=== PATIENT | male | born 1975 | race Caucasian/White ===

== ENCOUNTER 2019-04-10 16:01 | Inpatient (IN) | payer OTHER ==
[2019-04-10] MEDS ORDERED: IBUPROFEN 600 MG TAB PO STA (16:53)
[2019-04-10] MEDS ORDERED: ACETAMINOPHEN TAB 500 MG TAB PO STA (16:53)
[2019-04-10 17:02] LABS: Basophils # (A) 0.1 k/uL (0-0.2); Basophils % (A) 1 %; Eosinophils # (A) 0.4 k/uL (0-0.7); Eosinophils % (A) 6 %; HCT 48.5 % (39.0-53.0); HGB 16.6 gm/dL (13.0-17.5); Lymphocytes # (A) 0.3 k/uL (1.0-4.8); Lymphocytes % (A) 5 %; MCH 30.3 pg (25.0-35.0); MCHC 34.2 g/dL (31.0-37.0); MCV 88.7 fL (80.0-100.0); Mean Platelet Volume 7.9; Monocytes # (A) 0.5 k/uL (0-1.0); Monocytes % (A) 8 %; Neutrophils # (A) 4.9 k/uL (1.3-7.7); Neutrophils % (A) 78 %; Platelet Count 163 k/uL (150-450); RBC 5.46 m/uL (4.30-5.90); RDW 12.3 % (11.5-15.5); WBC 6.2 k/uL (3.8-10.6)
--- NOTE | 2019-04-10 17:06 | ED ---
Fever HPI - General Chief Complaint: Chest Pain Stated Complaint: Chest pain,SOB Time Seen by Provider: 04/10/19 16:31 Source: patient, RN notes reviewed, old records reviewed Mode of arrival: wheelchair Limitations: no limitations - History of Present Illness Initial Comments: This is a 43-year-old male DF for evaluation patient presents today for eval uation regards to recent fever body aches and pains patient also has known DVT diagnosed today. Is complaining of chest pain nor severe fever on arrival to ER no travel history or sick contacts. Patient has been driving a lot for work but no prior history of DVT on no otherwise no medical history denies drugs or alcohol does smoke MD Complaint: fever, other (body aches) -: days(s) Temperature Source: subjective Context: sick contacts, recent travel Associated Symptoms: chills Treatments Prior to Arrival: none - Related Data Home Medications Medication Instructions Recorded Confirmed Gabapentin [Neurontin] 100 mg PO BID PRN 11/25/14 11/30/14 Naproxen [Naprosyn] 250 mg PO BID PRN 11/25/14 11/25/14 Previous Rx's Medication Instructions Recorded HYDROcodone/APAP 7.5-325MG [[place] 1 each PO Q4H PRN #60 tab 11/30/14 7.5] Allergies Allergy/AdvReac Type Severity Reaction Status Date / Time Penicillins Allergy Unknown Verified 11/25/14 15:59 Review of Systems ROS Statement: Those systems with pertinent positive or pertinent negative responses have been documented in the HPI. ROS Other: All systems not noted in ROS Statement are negative. Past Medical History Past Medical History: No Reported History Additional Past Medical History / Comment(s): dvts polycythemia vera History of Any Multi-Drug Resistant Organisms: None Reported Past Surgical History: Cholecystectomy, Hernia Repair Additional Past Surgical History / Comment(s): LEFT INGUINAL HERNIA Past Anesthesia/Blood Transfusion Reactions: Motion Sickness Past Psychological History: No Psychological Hx Reported Smoking Status: Current every day smoker Past Alcohol Use History: Rare Past Drug Use History: None Reported - Past Family History Mother Family Medical History: No Reported History General Exam Limitations: no limitations General appearance: alert, in no apparent distress, anxious, in distress Head exam: Present: atraumatic, normocephalic, normal inspection Eye exam: Present: normal appearance, PERRL, EOMI. Absent: scleral icterus, conjunctival injection, periorbital swelling ENT exam: Present: normal exam, mucous membranes moist Neck exam: Present: normal inspection. Absent: tenderness, meningismus, lymphadenopathy Respiratory exam: Present: normal lung sounds bilaterally. Absent: respiratory distress, wheezes, rales, rhonchi, stridor Cardiovascular Exam: Present: normal rhythm, tachycardia, normal heart sounds. Absent: systolic murmur, diastolic murmur, rubs, gallop, clicks GI/Abdominal exam: Present: soft, normal bowel sounds. Absent: distended, tenderness, guarding, rebound, rigid Extremities exam: Present: normal inspection, full ROM, normal capillary refill. Absent: tenderness, pedal edema, joint swelling, calf tenderness Back exam: Present: normal inspection Neurological exam: Present: alert, oriented X3, CN II-XII intact Psychiatric exam: Present: normal affect, normal mood Skin exam: Present: warm, dry, intact, normal color. Absent: rash Course Vital Signs 04/10/19 04/10/19 04/10/19 16:07 16:32 17:39 Temperature 102.2 F H 101 F H Pulse Rate 132 H 125 H Pulse Rate [ 124 H [employer] ] Respiratory 18 18 Rate Blood Pressure 129/81 145/96 O2 Sat by Pulse 96 97 Oximetry 04/10/19 04/10/19 18:11 18:46 Temperature 100.9 F H 100.3 F H Pulse Rate 121 H 117 H Pulse Rate [ [employer] ] Respiratory 18 18 Rate Blood Pressure 139/93 142/96 O2 Sat by Pulse 98 97 Oximetry - Reevaluation(s) Reevaluation #1: 04/10/19 18:08 Medical records reviewed, patient does have US showing positive recent DVT diagnosed today Reevaluation #2: 04/10/19 20:01 Patient does feel better with fever control hydration, pain control - Consultations Consultation #1: Spoke with Dr. Linton who is agreeable to admit Consultation #2: Spoke with Dr. Cooepr who is okay to admit and will evaluate for further intervention Consultation #3: Spoke with ICU for placement who agree Medical Decision Making - Medical Decision Making 43 male to the ER with multiple medical conditions, patient is right lower extremity DVT positive bilateral PEs as well as influenza and, patient will be treated for symptoms and can be admitted for evaluation and management - Lab Data Result diagrams: 04/10/19 16:33 04/10/19 16:33 Lab Results 04/10/19 04/10/19 04/10/19 Range/Units 16:33 16:33 16:33 WBC (3.8-10.6) k/uL RBC (4.30-5.90) m/uL Hgb (13.0-17.5) gm/dL Hct (39.0-53.0) % MCV (80.0-100.0) fL MCH (25.0-35.0) pg MCHC (31.0-37.0) g/dL RDW (11.5-15.5) % Plt Count (150-450) k/uL Neutrophils % % Lymphocytes % % Monocytes % % Eosinophils % % Basophils % % Neutrophils # (1.3-7.7) k/uL Lymphocytes # (1.0-4.8) k/uL Monocytes # (0-1.0) k/uL Eosinophils # (0-0.7) k/uL Basophils # (0-0.2) k/uL PT 9.8 (9.0-12.0) sec INR 0.9 (<1.2) APTT 22.3 (22.0-30.0) sec Sodium (137-145) mmol/L Potassium (3.5-5.1) mmol/L Chloride (98-107) mmol/L Carbon Dioxide (22-30) mmol/L Anion Gap mmol/L BUN (9-20) mg/dL Creatinine (0.66-1.25) mg/dL Est GFR (CKD-EPI)AfAm (>60 ml/min/1.73 sqM) Est GFR (CKD-EPI)NonAf (>60 ml/min/1.73 sqM) Glucose (74-99) mg/dL Plasma Lactic Acid Eh 1.3 (0.7-2.0) mmol/L Calcium (8.4-10.2) mg/dL Phosphorus (2.5-4.5) mg/dL Magnesium (1.6-2.3) mg/dL Total Bilirubin (0.2-1.3) mg/dL AST (17-59) U/L ALT (4-49) U/L Alkaline Phosphatase (38-126) U/L Troponin I <0.012 (0.000-0.034) ng/mL Total Protein (6.3-8.2) g/dL Albumin (3.5-5.0) g/dL TSH (0.465-4.680) mIU/L Free T4 (0.78-2.19) ng/dL Influenza Type A RNA (Not Detectd) Influenza Type B (PCR) (Not Detectd) 04/10/19 04/10/19 04/10/19 Range/Units 16:33 16:33 16:33 WBC 6.2 (3.8-10.6) k/uL RBC 5.46 (4.30-5.90) m/uL Hgb 16.6 (13.0-17.5) gm/dL Hct 48.5 (39.0-53.0) % MCV 88.7 (80.0-100.0) fL MCH 30.3 (25.0-35.0) pg MCHC 34.2 (31.0-37.0) g/dL RDW 12.3 (11.5-15.5) % Plt Count 163 (150-450) k/uL Neutrophils % 78 % Lymphocytes % 5 % Monocytes % 8 % Eosinophils % 6 % Basophils % 1 % Neutrophils # 4.9 (1.3-7.7) k/uL Lymphocytes # 0.3 L (1.0-4.8) k/uL Monocytes # 0.5 (0-1.0) k/uL Eosinophils # 0.4 (0-0.7) k/uL Basophils # 0.1 (0-0.2) k/uL PT (9.0-12.0) sec INR (<1.2) APTT (22.0-30.0) sec Sodium 135 L (137-145) mmol/L Potassium 4.4 (3.5-5.1) mmol/L Chloride 105 (98-107) mmol/L Carbon Dioxide 22 (22-30) mmol/L Anion Gap 8 mmol/L BUN 18 (9-20) mg/dL Creatinine 1.00 (0.66-1.25) mg/dL Est GFR (CKD-EPI)AfAm >90 (>60 ml/min/1.73 sqM) Est GFR (CKD-EPI)NonAf >90 (>60 ml/min/1.73 sqM) Glucose 87 (74-99) mg/dL Plasma Lactic Acid Eh (0.7-2.0) mmol/L Calcium 9.5 (8.4-10.2) mg/dL Phosphorus 3.3 (2.5-4.5) mg/dL Magnesium 1.8 (1.6-2.3) mg/dL Total Bilirubin 0.7 (0.2-1.3) mg/dL AST 23 (17-59) U/L ALT 19 (4-49) U/L Alkaline Phosphatase 72 (38-126) U/L Troponin I (0.000-0.034) ng/mL Total Protein 7.4 (6.3-8.2) g/dL Albumin 4.3 (3.5-5.0) g/dL TSH 0.233 L (0.465-4.680) mIU/L Free T4 1.06 (0.78-2.19) ng/dL Influenza Type A RNA (Not Detectd) Influenza Type B (PCR) (Not Detectd) 04/10/19 Range/Units 17:17 WBC (3.8-10.6) k/uL RBC (4.30-5.90) m/uL Hgb (13.0-17.5) gm/dL Hct (39.0-53.0) % MCV (80.0-100.0) fL MCH (25.0-35.0) pg MCHC (31.0-37.0) g/dL RDW (11.5-15.5) % Plt Count (150-450) k/uL Neutrophils % % Lymphocytes % % Monocytes % % Eosinophils % % Basophils % % Neutrophils # (1.3-7.7) k/uL Lymphocytes # (1.0-4.8) k/uL Monocytes # (0-1.0) k/uL Eosinophils # (0-0.7) k/uL Basophils # (0-0.2) k/uL PT (9.0-12.0) sec INR (<1.2) APTT (22.0-30.0) sec Sodium (137-145) mmol/L Potassium (3.5-5.1) mmol/L Chloride (98-107) mmol/L Carbon Dioxide (22-30) mmol/L Anion Gap mmol/L BUN (9-20) mg/dL Creatinine (0.66-1.25) mg/dL Est GFR (CKD-EPI)AfAm (>60 ml/min/1.73 sqM) Est GFR (CKD-EPI)NonAf (>60 ml/min/1.73 sqM) Glucose (74-99) mg/dL Plasma Lactic Acid Eh (0.7-2.0) mmol/L Calcium (8.4-10.2) mg/dL Phosphorus (2.5-4.5) mg/dL Magnesium (1.6-2.3) mg/dL Total Bilirubin (0.2-1.3) mg/dL AST (17-59) U/L ALT (4-49) U/L Alkaline Phosphatase (38-126) U/L Troponin I (0.000-0.034) ng/mL Total Protein (6.3-8.2) g/dL Albumin (3.5-5.0) g/dL TSH (0.465-4.680) mIU/L Free T4 (0.78-2.19) ng/dL Influenza Type A RNA Detected H (Not Detectd) Influenza Type B (PCR) Not Detected (Not Detectd) - EKG Data -: EKG Interpreted by Me (EKG shows sinus tachycardia rate 128, HI 1:30, QRS 90, QTc 440) - Radiology Data Radiology results: report reviewed (CTA chest social positive for bilateral PE), image reviewed Critical Care Time Critical Care Time: Yes Total Critical Care Time: 31 Disposition Clinical Impression: Chest pain, Influenza A, Fever, Bilateral pulmonary embolism, Right leg DVT Disposition: ADMITTED IP TO THIS HOSP Condition: Serious Is patient prescribed a controlled substance at d/c from ED?: No Referrals: Mary Burdick DO [Primary Care Provider] - 1-2 days
[2019-04-10] MEDS ORDERED: SODIUM CHLORIDE 0.9% 2,000 ML IV STA (17:07)
[2019-04-10] MEDS ORDERED: SODIUM CHLORIDE 0.9% 1,000 ML IV STA ×3 (17:07→20:04)
[2019-04-10 17:16] LABS: ALT 19 U/L (4-49); AST 23 U/L (17-59); African American GFR (CKD) >90 (>60 ml/min/1.73 sqM); Albumin 4.3 g/dL (3.5-5.0); Alkaline Phosphatase 72 U/L (38-126); Anion Gap 8 mmol/L; Blood Urea Nitrogen 18 mg/dL (9-20); Calcium 9.5 mg/dL (8.4-10.2); Carbon Dioxide 22 mmol/L (22-30); Chloride 105 mmol/L (98-107); Glucose 87 mg/dL (74-99); Non-African American GFR(CKD) >90 (>60 ml/min/1.73 sqM); Potassium 4.4 mmol/L (3.5-5.1); Sodium 135 mmol/L (137-145); Total Bilirubin 0.7 mg/dL (0.2-1.3); Total Protein 7.4 g/dL (6.3-8.2)
[2019-04-10 17:24] LABS: Magnesium 1.8 mg/dL (1.6-2.3); Phosphorus 3.3 mg/dL (2.5-4.5)
[2019-04-10 17:47] LABS: INR 0.9 (<1.2); Partial Thromboplastin Time 22.3 sec (22.0-30.0); Prothrombin Time 9.8 sec (9.0-12.0)
[2019-04-10] MEDS ORDERED: OSELTAMIVIR 75 MG CAP PO STA (18:17)
[2019-04-10 19:31] LABS: T4, Free (Free Thyroxine) 1.06 ng/dL (0.78-2.19)
[2019-04-10] MEDS ORDERED: HEPARIN SODIUM,PORCINE 5,000 UNIT/ML 1 ML VIAL IV PRN (19:31)
[2019-04-10] MEDS ORDERED: HEPARIN SODIUM,PORCINE 10,000 UNIT/ML 1 ML VIAL IV ONE (19:31)
--- NOTE | 2019-04-10 19:37 | CT ---
EXAMINATION TYPE: CT angio chest with contrast and with 3-D reconstruction renderings DATE OF EXAM: 04/10/2019 6:41 PM COMPARISON: None HISTORY: SOB, cough TECHNIQUE: Departmental CTA protocol. Automated exposure control for dose reduction was used with 100 mL of Isovue 370 intravenous contrast. 3-D reconstruction renderings. FINDINGS: LUNGS: The lungs are grossly clear, there is no concerning parenchymal mass or nodule identified. T here is no pleural effusion or pneumothorax seen. The tracheobronchial tree is patent. MEDIASTINUM: There is satisfactory enhancement of the pulmonary artery and its branches, and there ar e multifocal filling defects bilaterally consistent with bilateral pulmonary emboli. These are nonocc lusive centrally, but several are occlusive at the segmental level bilaterally. The right lower lobe pulmonary artery is nearly occlusive. The right ventricle and right atrium are not enlarged, and ther e is no evidence of right heart strain. No cardiomegaly or pericardial effusion. There is evidence of left ventricular hypertrophy. No eviden ce of intracranial filling defects. No mediastinal or hilar adenopathy. OTHER: No additional significant abnormality is seen. IMPRESSION: PROMINENT MULTIFOCAL BILATERAL PULMONARY EMBOLI, WITH NO EVIDENCE OF RIGHT HEART STRAIN. Results discussed with ordering physician just now, to ensure communications.
[2019-04-10] MEDS ORDERED: NITROGLYCERIN SL TABS 0.4 MG TAB SUBLINGUAL PRN (19:53)
[2019-04-10] MEDS ORDERED: NALOXONE 0.4 MG/ML 1 ML VIAL IV PRN (19:53)
[2019-04-10] MEDS: HEPARIN SOD,PORK IN 0.45% NACL 25,000 UNIT in 0.45% NACL 1 250ML.BAG IV SCH (20:18)
[2019-04-10] MEDS: SODIUM CHLORIDE 0.9% 1,000 ML IV SCH (22:25)
[2019-04-10 22:34] LABS: Glucose,Whole Blood 136 mg/dL (75-99)
[2019-04-10] MEDS: MORPHINE SULFATE 4 MG/ML SYRINGE IV PRN (23:20)
[2019-04-11 02:15] LABS: Appearance,Urine Clear (Clear); Bilirubin,Urine Negative (Negative); Blood,Urine Negative (Negative); Color,Urine Light Yellow; Glucose,Urine (UA) Negative (Negative); Ketones,Urine Negative (Negative); Leukocyte Esterase,Urine Negative (Negative); Nitrite,Urine Negative (Negative); PH, Urine 5.5 (5.0-8.0); Protein,Urine Negative (Negative); Urobilinogen,Urine <2.0 mg/dL (<2.0)
[2019-04-11] MEDS: ACETAMINOPHEN TAB 325 MG TAB PO PRN ×2 (04:50→15:25)
[2019-04-11 05:09] LABS: Basophils % (A) 1 %; Eosinophils # (A) 0.1 k/uL (0-0.7); Eosinophils % (A) 3 %; HCT 42.6 % (39.0-53.0); HGB 14.6 gm/dL (13.0-17.5); Lymphocytes # (A) 0.5 k/uL (1.0-4.8); Lymphocytes % (A) 10 %; MCH 30.7 pg (25.0-35.0); MCHC 34.3 g/dL (31.0-37.0); MCV 89.6 fL (80.0-100.0); Monocytes # (A) 0.5 k/uL (0-1.0); Monocytes % (A) 8 %; Neutrophils # (A) 4.1 k/uL (1.3-7.7); Neutrophils % (A) 77 %; Platelet Count 159 k/uL (150-450); RBC 4.76 m/uL (4.30-5.90); RDW 12.3 % (11.5-15.5); WBC 5.3 k/uL (3.8-10.6)
[2019-04-11 05:17] LABS: Prothrombin Time 10.4 sec (9.0-12.0)
[2019-04-11 06:34] LABS: African American GFR (CKD) >90 (>60 ml/min/1.73 sqM); Anion Gap 7 mmol/L; Blood Urea Nitrogen 14 mg/dL (9-20); Calcium 8.3 mg/dL (8.4-10.2); Carbon Dioxide 21 mmol/L (22-30); Chloride 109 mmol/L (98-107); Cholesterol 163 mg/dL (<200); Glucose 116 mg/dL (74-99); HDL Cholesterol 31 mg/dL (40-60); LDL Cholesterol,Calculated 111 mg/dL (0-99); Non-African American GFR(CKD) >90 (>60 ml/min/1.73 sqM); Potassium 3.9 mmol/L (3.5-5.1); Sodium 137 mmol/L (137-145); Triglycerides 104 mg/dL (<150)
[2019-04-11] MEDS: SODIUM CHLORIDE 0.9% 1,000 ML IV SCH ×2 (06:43→15:26)
[2019-04-11] MEDS ORDERED: GABAPENTIN 300 MG CAP PO PRN (07:03)
[2019-04-11] MEDS ORDERED: SILDENAFIL 20 MG TAB PO SCH (07:05)
[2019-04-11] MEDS: ASPIRIN 81 MG PO SCH (07:54)
[2019-04-11] MEDS: OSELTAMIVIR 75 MG CAP PO SCH ×2 (07:54→21:30)
[2019-04-11] MEDS: SILDENAFIL 20 MG TAB PO SCH (07:54)
[2019-04-11] MEDS: amLODIPine 5 MG TAB PO SCH (07:54)
--- NOTE | 2019-04-11 08:31 | XR ---
EXAMINATION TYPE: XR chest 1V portable DATE OF EXAM: 04/11/2019 COMPARISON: Prior chest x-ray 09/06/2011, chest CT 04/10/2019 HISTORY: Fluid A, pleural effusions, pulmonary emboli TECHNIQUE: Single frontal view of the chest is obtained. FINDINGS: There is obscured lateral aspect of the left hemidiaphragm. There is no evident pneumothor ax. Heart size is within normal limits. Pulmonary vascularity and geraldine are unremarkable. IMPRESSION: There may be left lower lobe atelectasis, difficult to exclude small effusion.
--- NOTE | 2019-04-11 08:48 | P.CRDCN ---
History of Present Illness Consult date: 04/11/19 Chief complaint: Right lower extremity discomfort History of present illness: This is a very pleasant 43-year-old gentleman with a past medical history significant for hypertension who presented to the emergency room complaining of chest discomfort as well as shortness of breath. The patient is a otr owner operator truck driver who was diagnosed recently with a DVT of the right lower extremity. For the last 3 days, he has been experiencing chest pain in the middle of the chest as a sharp kind of discomfort without radiation. Beside that he was experiencing increasing in the shortness of breath. Also when he arrived to the emergency room the patient was having severe fever. As a matter of fact when the patient was seen earlier today he was experiencing fever associated with sweating. A computed tomography scan was performed in the emergency room and revealed multi- pulmonary embolism. Currently the patient is on heparin IV. He stated that he is feeling slightly better indeterminable of chest pain and shortness of breath. Currently he is also on isolation regarding flu symptoms. Overall he is hemodynamically stable. In terms off the computed tomography scan revealed multiple PE. The EKG showed sinus tachycardia. The cardiac enzymes were checked and came in to be unremarkable. An echocardiogram is in process to be done. Past Medical History Past Medical History: No Reported History, Deep Vein Thrombosis (DVT), Hypertension Additional Past Medical History / Comment(s): hernia repair, 1998 , tonsillectomy, dvts polycythemia vera History of Any Multi-Drug Resistant Organisms: None Reported Past Surgical History: Cholecystectomy, Hernia Repair Additional Past Surgical History / Comment(s): LEFT INGUINAL HERNIA Past Anesthesia/Blood Transfusion Reactions: Motion Sickness Past Psychological History: No Psychological Hx Reported Smoking Status: Current every day smoker Past Alcohol Use History: Rare Past Drug Use History: None Reported - Past Family History Mother Family Medical History: No Reported History Medications and Allergies Home Medications Medication Instructions Recorded Confirmed Type Aspirin EC [Ecotrin Low Dose] 81 mg PO DAILY 04/10/19 04/10/19 History Gabapentin 150 - 300 mg PO HS PRN 04/10/19 04/10/19 History amLODIPine [Norvasc] 5 mg PO DAILY 04/10/19 04/10/19 History Allergies Allergy/AdvReac Type Severity Reaction Status Date / Time Penicillins Allergy FAMILY Verified 04/10/19 20:16 HISTORY Physical Exam Vitals: Vital Signs Temp Pulse Pulse Resp BP Pulse Ox 04/11/19 08:00 100.1 F H 100 27 H 144/82 94 L 04/11/19 07:00 100.4 F H 104 H 10 L 157/96 95 04/11/19 06:00 107 H 31 H 167/99 94 L 04/11/19 05:00 116 H 32 H 167/99 94 L 04/11/19 04:00 114 H 37 H 160/100 93 L 04/11/19 03:00 126 H 31 H 141/97 96 04/11/19 02:55 126 H 34 H 141/97 96 04/11/19 02:50 126 H 34 H 141/97 96 04/11/19 02:45 120 H 33 H 141/97 96 04/11/19 02:40 121 H 32 H 162/113 96 04/11/19 02:35 123 H 34 H 162/113 96 04/11/19 02:30 149 H 42 H 162/113 95 04/11/19 02:25 116 H 31 H 162/113 93 L 04/11/19 02:20 120 H 31 H 162/113 93 L 04/11/19 02:15 114 H 32 H 162/113 93 L 04/11/19 02:00 113 H 21 141/98 94 L 04/11/19 01:00 112 H 7 L 143/99 94 L 04/11/19 00:00 99.8 F H 112 H 113 H 7 L 143/99 93 L 04/10/19 23:33 108 H 11 L 147/90 94 L 04/10/19 23:00 100.6 F H 120 H 28 H 147/90 96 04/10/19 22:45 113 H 04/10/19 22:32 95 04/10/19 22:21 115 H 19 147/107 98 04/10/19 22:09 100.6 F H 109 H 20 04/10/19 20:48 99 F 108 H 18 144/100 98 04/10/19 19:00 109 H 19 146/99 98 04/10/19 18:46 100.3 F H 117 H 18 142/96 97 04/10/19 18:11 100.9 F H 121 H 18 139/93 98 04/10/19 17:39 101 F H 125 H 18 145/96 97 04/10/19 16:32 124 H 04/10/19 16:07 102.2 F H 132 H 18 129/81 96 Intake and Output 04/10/19 04/11/19 04/11/19 22:59 06:59 14:59 Intake Total 824.648 200 Output Total 600 500 Balance 224.648 -300 Intake: IV 710 200 Sodium Chloride 0.9% 1, 710 200 000 ml @ 100 mls/hr IV . Q10H [facility] Rx#:[id number] Intake, IV Titration 114.648 Amount Heparin Sod,Pork in 0.45% 114.648 NaCl 25,000 unit In 0.45 % NaCl 1 250ml.bag @ 18 UNITS/KG/HR 16.737 mls/hr IV .[id number] [facility] Rx#: [id number] Output: Urine 600 500 Other: Voiding Method Urinal Urinal Weight 92.986 kg 94.8 kg - Constitutional General appearance: no acute distress - Respiratory Respiratory: bilateral: CTA - Cardiovascular Rhythm: regular Heart sounds: normal: S1, S2 Results 04/11/19 04:38 04/11/19 04:38 Cardiac Enzymes 04/10/19 04/10/19 04/10/19 Range/Units 16:33 16:33 22:50 AST 23 (17-59) U/L Troponin I <0.012 <0.012 (0.000-0.034) ng/mL 04/11/19 Range/Units 04:38 AST (17-59) U/L Troponin I <0.012 (0.000-0.034) ng/mL Coagulation 04/10/19 04/11/19 04/11/19 Range/Units 16:33 01:56 04:38 PT 9.8 10.4 (9.0-12.0) sec APTT 22.3 70.8 H (22.0-30.0) sec Lipids 04/11/19 Range/Units 04:38 Triglycerides 104 (<150) mg/dL Cholesterol 163 (<200) mg/dL HDL Cholesterol 31 L (40-60) mg/dL CBC 04/10/19 04/11/19 Range/Units 16:33 04:38 WBC 6.2 5.3 (3.8-10.6) k/uL RBC 5.46 4.76 (4.30-5.90) m/uL Hgb 16.6 14.6 (13.0-17.5) gm/dL Hct 48.5 42.6 (39.0-53.0) % Plt Count 163 159 (150-450) k/uL Comprehensive Metabolic Panel 04/10/19 04/11/19 Range/Units 16:33 04:38 Sodium 135 L 137 (137-145) mmol/L Potassium 4.4 3.9 (3.5-5.1) mmol/L Chloride 105 109 H (98-107) mmol/L Carbon Dioxide 22 21 L (22-30) mmol/L BUN 18 14 (9-20) mg/dL Creatinine 1.00 0.96 (0.66-1.25) mg/dL Glucose 87 116 H (74-99) mg/dL Calcium 9.5 8.3 L (8.4-10.2) mg/dL AST 23 (17-59) U/L ALT 19 (4-49) U/L Alkaline Phosphatase 72 (38-126) U/L Total Protein 7.4 (6.3-8.2) g/dL Albumin 4.3 (3.5-5.0) g/dL Current Medications Generic Name Dose Route Start Last Admin Trade Name Freq PRN Reason Stop Dose Admin Acetaminophen 650 mg 04/10/19 22:58 04/11/19 04:50 Tylenol Tab PO 650 mg Q4HR PRN Administration Fever and/or Mild Pain Amlodipine Besylate 5 mg 04/11/19 09:00 04/11/19 07:54 Norvasc PO 5 mg DAILY [facility]ELA Administration Aspirin 81 mg 04/11/19 09:00 04/11/19 07:54 Aspirin PO 81 mg DAILY T[facility]ELA Administration Gabapentin 300 mg 04/11/19 07:03 Neurontin PO HS PRN HEADACHES Heparin Sodium (Porcine) 0 unit 04/10/19 19:31 Heparin IV PER PROTOCOL PRN Low PTT Protocol Heparin Sodium/Sodium Chloride 250 mls @ 16.737 mls/hr 04/10/19 19:45 04/11/19 03:09 25,000 unit/ Sodium Chloride IV 16 units/kg/hr .[id number] [facility] 14.878 mls/hr Titration Protocol 18 UNITS/KG/HR Sodium Chloride 1,000 mls @ 100 mls/hr 04/10/19 20:00 04/11/19 06:43 Saline 0.9% IV 100 mls/hr .Q10H [facility] Administration Morphine Sulfate 4 mg 04/10/19 19:53 04/10/19 23:20 Morphine Sulfate (Inj) IV 4 mg Q4HR PRN Administration Chest Pain Naloxone HCl 0.2 mg 04/10/19 19:53 Narcan IV Q2M PRN Opioid Reversal Nitroglycerin 0.4 mg 04/10/19 19:53 Nitrostat SUBLINGUAL Q5M PRN Chest Pain Oseltamivir Phosphate 75 mg 04/11/19 09:00 04/11/19 07:54 Tamiflu PO 04/15/19 09:01 75 mg Q12HR TAMELA Administration Sildenafil Citrate 20 mg 04/11/19 08:00 04/11/19 07:54 Revatio PO 20 mg Q8H TAMELA Administration Intake and Output 04/10/19 04/11/19 04/11/19 22:59 06:59 14:59 Intake Total 824.648 200 Output Total 600 500 Balance 224.648 -300 Intake: IV 710 200 Sodium Chloride 0.9% 1, 710 200 000 ml @ 100 mls/hr IV . Q10H [facility] Rx#:[id number] Intake, IV Titration 114.648 Amount Heparin Sod,Pork in 0.45% 114.648 NaCl 25,000 unit In 0.45 % NaCl 1 250ml.bag @ 18 UNITS/KG/HR 16.737 mls/hr IV .[id number] [facility] Rx#: [id number] Output: Urine 600 500 Other: Voiding Method Urinal Urinal Weight 92.986 kg 94.8 kg 04/11/19 04:38 04/11/19 04:38 Assessment and Plan Assessment: Assessment #1 Provoked DVT/PE #2 chest discomfort secondary to PE #3 flu symptoms #4 hypertension Plan #1 continue IV heparin for now. #2 switch the patient to oral anticoagulation #3 acute coronary syndrome was ruled out #4 the sinus tachycardia is likely related to the PE. We'll continue monitor the heart rate #5 obtain an echocardiogram was Doppler #6 follow-up with the patient
--- NOTE | 2019-04-11 09:33 | P.GSCN ---
History of Present Illness Consult date: 04/11/19 Reason for Consult: Bilateral pulmonary embolism, right lower extremity DVT History of present illness: The patient is a pleasant 43-year-old male with a past medical history significant for hypertension who was sent to the ED by his PCP at [facility] for a right lower extremity DVT, tachycardia, and fever. Patient states he had venous doppler ultrasound of the lower extremity done at [facility]. The patient states approximately 3 weeks ago he noticed swelling, pain, and redness in his right lower extremity, however did not seek any medical attention until yesterday. Patient also states yesterday he started feeling chest pain with breathing, shortness of breath, heart racing, fever, and body aches. He denies any past history of DVTs or pulmonary embolism, however after further interview patient states he "may have had a lower extremity blood clot that he was treatred with coumadin." Denies any family history or personal history of any clotting disorders. The patient states that he drives a lot for work. The patient tested positive for influenza and is in droplet precautions. EKG showed sinus tachycardia. CT chest angiogram shows prominent multifocal bilateral pulmonary embolisms with no evidence of right heart strain. An echocardiogram has been ordered. Review of Systems A 14 point review of systems is completed, and all pertinent positives and negatives as stated in the HPI. Past Medical History Past Medical History: No Reported History, Deep Vein Thrombosis (DVT), Hypertension Additional Past Medical History / Comment(s): hernia repair, 1998 , tonsillectomy, dvts polycythemia vera History of Any Multi-Drug Resistant Organisms: None Reported Past Surgical History: Cholecystectomy, Hernia Repair Additional Past Surgical History / Comment(s): LEFT INGUINAL HERNIA Past Anesthesia/Blood Transfusion Reactions: Motion Sickness Past Psychological History: No Psychological Hx Reported Smoking Status: Current every day smoker Past Alcohol Use History: Rare Past Drug Use History: None Reported - Past Family History Mother Family Medical History: No Reported History Medications and Allergies Home Medications Medication Instructions Recorded Confirmed Type Aspirin EC [Ecotrin Low Dose] 81 mg PO DAILY 04/10/19 04/10/19 History Gabapentin 150 - 300 mg PO HS PRN 04/10/19 04/10/19 History amLODIPine [Norvasc] 5 mg PO DAILY 04/10/19 04/10/19 History Allergies Allergy/AdvReac Type Severity Reaction Status Date / Time Penicillins Allergy FAMILY Verified 04/10/19 20:16 HISTORY Surgical - Exam Vital Signs Temp Pulse Resp BP Pulse Ox 102.2 F H 132 H 18 129/81 96 04/10/19 16:07 04/10/19 16:07 04/10/19 16:07 04/10/19 16:07 04/10/19 16:07 General appearance: The patient is alert, oriented, in no acute distress. HET: Head is normocephalic and atraumatic. Pupils are equal and reactive. Neck: Supple without lymphadenopathy. Trachea midline. Heart: S1 S2. Regular rate and rhythm. Lungs: No crackles or wheezes are heard. Abdomen: Soft, nontender, nondistended with bowel sounds. No peritoneal signs. No palpable organomegaly or masses. Extremities: Normal skin color and turgor. Mild on-pitting edeam to right lower extremity, no redness noted. Radial and pedal pulses are 2/4 bilaterally. Neurological: No focal deficits. Strength and sensation are grossly intact. Results CT angiogram showing prominent multifocal bilateral pulmonary embolism with no evidence of right heart strain. Echocardiogram pending results. Chest x-ray states there may be left lower lobe atelectasis, difficult to exclude small effusion. Reported right lower extremity DVT done in PCP office know results to review. - Labs 04/11/19 04:38 04/11/19 04:38 Abnormal Lab Results - Last 24 Hours (Table) 04/10/19 04/10/19 04/10/19 Range/Units 16:33 16:33 16:33 Lymphocytes # 0.3 L (1.0-4.8) k/uL APTT (22.0-30.0) sec Sodium 135 L (137-145) mmol/L Chloride (98-107) mmol/L Carbon Dioxide (22-30) mmol/L Glucose (74-99) mg/dL POC Glucose (mg/dL) (75-99) mg/dL Calcium (8.4-10.2) mg/dL LDL Cholesterol, Calc (0-99) mg/dL HDL Cholesterol (40-60) mg/dL TSH 0.233 L (0.465-4.680) mIU/L Influenza Type A RNA (Not Detectd) 04/10/19 04/10/19 04/11/19 Range/Units 17:17 22:33 01:56 Lymphocytes # (1.0-4.8) k/uL APTT 70.8 H (22.0-30.0) sec Sodium (137-145) mmol/L Chloride (98-107) mmol/L Carbon Dioxide (22-30) mmol/L Glucose (74-99) mg/dL POC Glucose (mg/dL) 136 H (75-99) mg/dL Calcium (8.4-10.2) mg/dL LDL Cholesterol, Calc (0-99) mg/dL HDL Cholesterol (40-60) mg/dL TSH (0.465-4.680) mIU/L Influenza Type A RNA Detected H (Not Detectd) 04/11/19 04/11/19 Range/Units 04:38 04:38 Lymphocytes # 0.5 L (1.0-4.8) k/uL APTT (22.0-30.0) sec Sodium (137-145) mmol/L Chloride 109 H (98-107) mmol/L Carbon Dioxide 21 L (22-30) mmol/L Glucose 116 H (74-99) mg/dL POC Glucose (mg/dL) (75-99) mg/dL Calcium 8.3 L (8.4-10.2) mg/dL LDL Cholesterol, Calc 111 H (0-99) mg/dL HDL Cholesterol 31 L (40-60) mg/dL TSH (0.465-4.680) mIU/L Influenza Type A RNA (Not Detectd) Diabetes panel 04/10/19 04/11/19 Range/Units 16:33 04:38 Sodium 135 L 137 (137-145) mmol/L Potassium 4.4 3.9 (3.5-5.1) mmol/L Chloride 105 109 H (98-107) mmol/L Carbon Dioxide 22 21 L (22-30) mmol/L BUN 18 14 (9-20) mg/dL Creatinine 1.00 0.96 (0.66-1.25) mg/dL Glucose 87 116 H (74-99) mg/dL Calcium 9.5 8.3 L (8.4-10.2) mg/dL AST 23 (17-59) U/L ALT 19 (4-49) U/L Alkaline Phosphatase 72 (38-126) U/L Total Protein 7.4 (6.3-8.2) g/dL Albumin 4.3 (3.5-5.0) g/dL Triglycerides 104 (<150) mg/dL HDL Cholesterol 31 L (40-60) mg/dL Thyroid panel 04/10/19 Range/Units 16:33 TSH 0.233 L (0.465-4.680) mIU/L Calcium panel 04/10/19 04/10/19 04/11/19 Range/Units 16:33 16:33 04:38 Calcium 9.5 8.3 L (8.4-10.2) mg/dL Phosphorus 3.3 (2.5-4.5) mg/dL Albumin 4.3 (3.5-5.0) g/dL Pituitary panel 04/10/19 04/10/19 04/11/19 Range/Units 16:33 16:33 04:38 Sodium 135 L 137 (137-145) mmol/L Potassium 4.4 3.9 (3.5-5.1) mmol/L Chloride 105 109 H (98-107) mmol/L Carbon Dioxide 22 21 L (22-30) mmol/L BUN 18 14 (9-20) mg/dL Creatinine 1.00 0.96 (0.66-1.25) mg/dL Glucose 87 116 H (74-99) mg/dL Calcium 9.5 8.3 L (8.4-10.2) mg/dL TSH 0.233 L (0.465-4.680) mIU/L Adrenal panel 04/10/19 04/11/19 Range/Units 16:33 04:38 Sodium 135 L 137 (137-145) mmol/L Potassium 4.4 3.9 (3.5-5.1) mmol/L Chloride 105 109 H (98-107) mmol/L Carbon Dioxide 22 21 L (22-30) mmol/L BUN 18 14 (9-20) mg/dL Creatinine 1.00 0.96 (0.66-1.25) mg/dL Glucose 87 116 H (74-99) mg/dL Calcium 9.5 8.3 L (8.4-10.2) mg/dL Total Bilirubin 0.7 (0.2-1.3) mg/dL AST 23 (17-59) U/L ALT 19 (4-49) U/L Alkaline Phosphatase 72 (38-126) U/L Total Protein 7.4 (6.3-8.2) g/dL Albumin 4.3 (3.5-5.0) g/dL Assessment and Plan Assessment: #1 bilateral pulmonary embolisms #2 reported right lower extremity DVT #3 influenza A #4 tobacco abuse #5 Hypertension Plan: I discussed this patient with Dr. Cooper. Continue heparin drip. Await echo results, if any concern for right heart strain will consider transfer to higher level of care. Smoking cessation. Further recommendations to follow. Thank you for this consultation, and allowing us to take part of plan of care this patient during his hospital stay. The above dictated assessment and findings were discussed with Dr. Cooper/Dr. Ochoa. The impression and plan of care have been directed as dictated.
[2019-04-11] MEDS: MORPHINE SULFATE 4 MG/ML SYRINGE IV PRN ×2 (09:49→15:25)
[2019-04-11] MEDS: HEPARIN SOD,PORK IN 0.45% NACL 25,000 UNIT in 0.45% NACL 1 250ML.BAG IV SCH (09:49)
--- NOTE | 2019-04-11 10:40 | P.CNPUL ---
History of Present Illness Consult date: 04/11/19 Reason for consult: pulmonary embolism, other (DVT) History of present illness: This is a 43-year-old male patient who came in yesterday to the emergency department complaining of chest pain, shortness of breath, pleurisy, cough and congestion and fever with a T-max of 103.1. He had also noted some increased swelling in the right lower extremity. He was driving long distances to [place] and [place]. He has had previous history of DVT of the right lower extremity. Around 2 weeks ago he noted another swelling in the right lower extremity and ultimately he went to his primary care physician's office and he was diagnosed having a DVT of the right lower extremity and following that the patient was admitted to the hospital with a DVT special that he was also diagnosed having pulmonary embolism on a CT angiogram and he also checked po sitive for influenza A. I reviewed the records. The patient came into the emergency department quite tachycardic with a heart rate in the 120 to 1:30, sinus. The patient did have increased swelling the right lower extremity. He was given a CT angiogram that showed bilateral pulmonary embolism and there was evidence of any right ventricular strain pattern. Troponins were negative. The patient remains hemodynamically stable. His tachycardia improved and his current heart rate is around 110. He is not using excessive muscle breathing. His breathing is quite comfortable and the patient was placed on IV heparin overnight. Echo was done this morning and there is also suspected pending for now. He was started on sildenafil by his primary care physician. The patient has no family history of DVT or pulmonary embolism. No family history of sudden . This is his second event with a right lower extremity DVT both being unprovoked. No recent surgery. No malignancy. He is a smoker. Review of Systems Constitutional: Reports fatigue, Reports fever, Reports weakness Eyes: denies as per HPI, denies blurred vision, denies bulging eye, denies decreased vision, denies diplopia, denies discharge, denies dry eye, denies irritation, denies itching, denies pain, denies photophobia, denies loss of peripheral vision, denies loss of vision, denies tunnel vision/blind spots Ears: deny: decreased hearing, ear discharge, earache, tinnitus Ears, nose, mouth and throat: Denies headache, Denies sore throat Breasts: absent: as per HPI, gynecomastia Cardiovascular: Reports decreased exercise tolerance, Reports shortness of breath Respiratory: Reports dyspnea, Reports pain on inspiration Gastrointestinal: Reports as per HPI Genitourinary: Reports as per HPI Musculoskeletal: Reports as per HPI Musculoskeletal: absent: ankle pain, ankle stiffness, ankle swelling Integumentary: Denies pruritus, Denies rash Neurological: Reports as per HPI Psychiatric: Reports as per HPI Endocrine: Reports as per HPI, Reports fatigue Hematologic/Lymphatic: Reports as per HPI Allergic/Immunologic: Reports as per HPI Past Medical History Past Medical History: No Reported History, Deep Vein Thrombosis (DVT), Hypertension Additional Past Medical History / Comment(s): hernia repair, 1998 , tons illectomy, dvts polycythemia vera History of Any Multi-Drug Resistant Organisms: None Reported Past Surgical History: Cholecystectomy, Hernia Repair Additional Past Surgical History / Comment(s): LEFT INGUINAL HERNIA Past Anesthesia/Blood Transfusion Reactions: Motion Sickness Past Psychological History: No Psychological Hx Reported Smoking Status: Current every day smoker Past Alcohol Use History: Rare Past Drug Use History: None Reported - Past Family History Mother Family Medical History: No Reported History Medications and Allergies Home Medications Medication Instructions Recorded Confirmed Type Aspirin EC [Ecotrin Low Dose] 81 mg PO DAILY 04/10/19 04/10/19 History Gabapentin 150 - 300 mg PO HS PRN 04/10/19 04/10/19 History amLODIPine [Norvasc] 5 mg PO DAILY 04/10/19 04/10/19 History Allergies Allergy/AdvReac Type Severity Reaction Status Date / Time Penicillins Allergy FAMILY Verified 04/10/19 20:16 HISTORY Physical Exam Vitals: Vital Signs Temp Pulse Pulse Resp BP Pulse Ox 04/11/19 09:00 113 H 17 132/92 95 04/11/19 08:00 100.1 F H 100 27 H 144/82 94 L 04/11/19 07:00 100.4 F H 104 H 10 L 157/96 95 04/11/19 06:00 107 H 31 H 167/99 94 L 04/11/19 05:00 116 H 32 H 167/99 94 L 04/11/19 04:00 114 H 37 H 160/100 93 L 04/11/19 03:00 126 H 31 H 141/97 96 04/11/19 02:55 126 H 34 H 141/97 96 04/11/19 02:50 126 H 34 H 141/97 96 04/11/19 02:45 120 H 33 H 141/97 96 04/11/19 02:40 121 H 32 H 162/113 96 04/11/19 02:35 123 H 34 H 162/113 96 04/11/19 02:30 149 H 42 H 162/113 95 04/11/19 02:25 116 H 31 H 162/113 93 L 04/11/19 02:20 120 H 31 H 162/113 93 L 04/11/19 02:15 114 H 32 H 162/113 93 L 04/11/19 02:00 113 H 21 141/98 94 L 04/11/19 01:00 112 H 7 L 143/99 94 L 04/11/19 00:00 99.8 F H 112 H 113 H 7 L 143/99 93 L 04/10/19 23:33 108 H 11 L 147/90 94 L 04/10/19 23:00 100.6 F H 120 H 28 H 147/90 96 04/10/19 22:45 113 H 04/10/19 22:32 95 04/10/19 22:21 115 H 19 147/107 98 04/10/19 22:09 100.6 F H 109 H 20 04/10/19 20:48 99 F 108 H 18 144/100 98 04/10/19 19:00 109 H 19 146/99 98 04/10/19 18:46 100.3 F H 117 H 18 142/96 97 04/10/19 18:11 100.9 F H 121 H 18 139/93 98 04/10/19 17:39 101 F H 125 H 18 145/96 97 04/10/19 16:32 124 H 04/10/19 16:07 102.2 F H 132 H 18 129/81 96 Intake and Output 04/10/19 04/11/19 04/11/19 22:59 06:59 14:59 Intake Total 824.648 399.187 Output Total 600 500 Balance 224.648 -100.813 Intake: IV 710 300 Sodium Chloride 0.9% 1, 710 300 000 ml @ 100 mls/hr IV . Q10H [facility] Rx#:[id number] Intake, IV Titration 114.648 99.187 Amount Heparin Sod,Pork in 0.45% 114.648 99.187 NaCl 25,000 unit In 0.45 % NaCl 1 250ml.bag @ 18 UNITS/KG/HR 16.737 mls/hr IV .[id number] [facility] Rx#: [id number] Output: Urine 600 500 Other: Voiding Method Urinal Urinal Urinal Weight 92.986 kg 94.8 kg Gen. appearance, comfortable no acute distress currently on 2 L about 2 by nasal cannula Head exam was generally normal. There was no scleral icterus or corneal arcus. Mucous membranes were moist. Neck was supple and without jugular venous distension, thyromegaly, or carotid bruits. Carotids were easily palpable bilaterally. There was no adenopathy. Lungs sounds are diminished otherwise clear. Breath sounds are equal and symmetrical. No wheezes or rhonchi. Heart sounds are tachycardic, positive S1-S2 and there is no significant murmurs appreciated. Abdominal exam revealed normal bowel sounds. The abdomen was soft, non-tender, and without masses, organomegaly, or appreciable enlargement of the abdominal aorta. Extremities revealed increased swelling in the right lower extremity compared to the left. There is a difference between the caliber and the dimensions of the right leg. Pulses are equal and symmetrical in both extremities. Examination of the skin revealed no evidence of significant rashes, suspicious appearing nevi or other concerning lesions. Neurologically awake and alert and there is no focal neurological deficits. Results - Laboratory Findings CBC and BMP: 04/11/19 04:38 04/11/19 04:38 PT/INR, D-dimer PT 10.4 sec (9.0-12.0) 04/11/19 04:38 INR 1.0 (<1.2) 04/11/19 04:38 Abnormal lab findings: Abnormal Labs 04/10/19 04/10/19 04/10/19 16:33 16:33 16:33 Lymphocytes # 0.3 L APTT Sodium 135 L Chloride Carbon Dioxide Glucose POC Glucose (mg/dL) Calcium LDL Cholesterol, Calc HDL Cholesterol TSH 0.233 L Influenza Type A RNA 04/10/19 04/10/19 04/11/19 17:17 22:33 01:56 Lymphocytes # APTT 70.8 H Sodium Chloride Carbon Dioxide Glucose POC Glucose (mg/dL) 136 H Calcium LDL Cholesterol, Calc HDL Cholesterol TSH Influenza Type A RNA Detected H 04/11/19 04/11/19 04/11/19 04:38 04:38 08:43 Lymphocytes # 0.5 L APTT 58.3 H Sodium Chloride 109 H Carbon Dioxide 21 L Glucose 116 H POC Glucose (mg/dL) Calcium 8.3 L LDL Cholesterol, Calc 111 H HDL Cholesterol 31 L TSH Influenza Type A RNA - Diagnostic Findings Chest x-ray: image reviewed Assessment and Plan Plan: 1 acute bilateral pulmonary embolism secondary to a right lower extremity DVT. This is a recurrent event. The patient had a DVT approximately 2 years ago treated with Coumadin and has been off anticoagulation since. The patient currently is on IV heparin. Echocardiogram is pending regarding the possibility of right ventricular strain or pulmonary hypertension. Meanwhile, troponins are negative and the patient has no strain pattern on his CT angiogram. 2 acute influenza syndrome currently on Tamiflu 3 acute fever secondary to above 4 acute tachycardia secondary to above, sinus 5 acute hypoxic respiratory failure secondary to above 6 chronic smoker 7 questionable history of polycythemia rubra vera, hemoglobin currently is at 14.6 8 hypertension 9 smoker Plan Echocardiogram to assess pulmonary hypertension and RV structure and function Continue IV heparin The patient will be a candidate for a long-term and to coagulation landed this is a recurrent event, the choice was largely dependent on his insurance coverage. Obtain copies of the Doppler of the lower extremity from [facility] Consult with vascular surgery regarding the possibility of any vascular intervention for this DVT and pulmonary embolism. For now the patient is hemodynamically stable without any significant RV strain pattern Continue course of Tamiflu IV fluids at 100 mL an hour We'll continue to follow. Keep in ICU for now. I see the patient was started on sildenafil. I do not see a role for this medication at this point in time/that the patient has not been confirmed to have pulmonary hypertension. We'll discuss with the primary care team. On separate note, A secondary pulmonary hypertension setting of pulmonary embolism does not require vasodilator treatment. This will be discussed with the primary care team.
--- NOTE | 2019-04-11 12:00 | ECHOF ---
Referral Reason:PE MEASUREMENTS -------- HEIGHT: 172.7 cm WEIGHT: 94.3 kg BP: 167/99 RVIDd: 3.0 cm (< 3.3) IVSd: 1.5 cm (0.6 - 1.1) LVIDd: 4.5 cm (3.9 - 5.3) LVPWd: 1.5 cm (0.6 - 1.1) IVSs: 2.0 cm LVIDs: 3.1 cm LVPWs: 1.9 cm LA Diam: 3.4 cm (2.7 - 3.8) LAESV Index (A-L): 23.25 ml/m Ao Diam: 3.5 cm (2.0 - 3.7) AV Cusp: 2.2 cm (1.5 - 2.6) MV EXCURSION: 19.523 mm (> 18.000) MV EF SLOPE: 134 mm/s (70 - 150) EPSS: 1.1 cm MV E Lance: 1.00 m/s MV DecT: 133 ms MV A Lance: 0.66 m/s MV E/A Ratio: 1.51 FINDINGS -------- Resting tachycardia (HR>100bpm). This was a technically good study. The left ventricular size is normal. There is moderate concentric left ventricular hypertrophy. O verall left ventricular systolic function is low-normal with, an EF between 50 - 55 %. The right ventricle is normal in size. Normal LA size by volume 22+/-6 ml/m2. The right atrium is normal in size. Interatrial and interventricular septum intact. The aortic valve is trileaflet and appears structurally normal. The mitral valve is normal. The tricuspid valve appears structurally normal. Trace/mild (physiologic) pulmonic regurgitation. The aortic root size is normal. Normal inferior vena cava with normal inspiratory collapse consistent with estimated right atrial pre ssure of 5 mmHg. There is no pericardial effusion. CONCLUSIONS -------- 1. Resting tachycardia (HR>100bpm). 2. This was a technically good study. 3. The left ventricular size is normal. 4. There is moderate concentric left ventricular hypertrophy. 5. The right ventricle is normal in size. 6. Normal LA size by volume 22+/-6 ml/m2. 7. The right atrium is normal in size. 8. Interatrial and interventricular septum intact. 9. The aortic valve is trileaflet and appears structurally normal. 10. The mitral valve is normal. 11. The tricuspid valve appears structurally normal. 12. Trace/mild (physiologic) pulmonic regurgitation. 13. The aortic root size is normal. 14. Normal inferior vena cava with normal inspiratory collapse consistent with estimated right atrial pressure of 5 mmHg. 15. There is no pericardial effusion. CLIENT SERVICE EXECUTIVE: Chantelle Morrow RDCS
--- NOTE | 2019-04-11 19:27 | P.HPIM ---
History of Present Illness H&P Date: 04/11/19 Chief Complaint: shortness of breath Chon Marin is a 43 yo M with PMH significant for hypertension who presented to the ED with shortness of breath and newly diagnosed DVT. He works as a transport truck driver and about 3 weeks ago noticed R leg swelling, erythema and tenderness. He did not see a physician at that time. Pt states about 3 days ago he began to experience cough and congestion, and yesterday developed shortness of breath. He was seen at his PCP office and was found to be febrile and tachycardic. Ultrasound showed DVT and pt was recommended to present to the ED. On presentation, HR 132, BP 130/80, T 102.2. EKG sinus tachycardia, CTA with prominent bilateral PE without evidence of R heart strain. Review of Systems All systems: negative Constitutional: Reports fever, Reports sweats, Reports weakness, Denies chills Eyes: denies blurred vision, denies pain Ears, nose, mouth and throat: Denies headache, Denies sore throat Cardiovascular: Reports leg edema, Reports shortness of breath, Denies chest pain Respiratory: Reports as per HPI, Reports congestion, Reports cough Gastrointestinal: Denies abdominal pain, Denies diarrhea, Denies nausea, Denies vomiting Musculoskeletal: Denies myalgias Integumentary: Denies pruritus, Denies rash Neurological: Denies numbness, Denies weakness Psychiatric: Denies anxiety, Denies depression Endocrine: Denies fatigue, Denies weight change Past Medical History Past Medical History: No Reported History, Deep Vein Thrombosis (DVT), Hypertension Additional Past Medical History / Comment(s): hernia repair, 1998 , tonsillectomy, dvts polycythemia vera History of Any Multi-Drug Resistant Organisms: None Reported Past Surgical History: Cholecystectomy, Hernia Repair Additional Past Surgical History / Comment(s): LEFT INGUINAL HERNIA Past Anesthesia/Blood Transfusion Reactions: Motion Sickness Past Psychological History: No Psychological Hx Reported Smoking Status: Current every day smoker Past Alcohol Use History: Rare Past Drug Use History: None Reported - Past Family History Mother Family Medical History: No Reported History Medications and Allergies Home Medications Medication Instructions Recorded Confirmed Type Aspirin EC [Ecotrin Low Dose] 81 mg PO DAILY 04/10/19 04/10/19 History Gabapentin 150 - 300 mg PO HS PRN 04/10/19 04/10/19 History amLODIPine [Norvasc] 5 mg PO DAILY 04/10/19 04/10/19 History Allergies Allergy/AdvReac Type Severity Reaction Status Date / Time Penicillins Allergy FAMILY Verified 04/10/19 20:16 HISTORY Physical Exam Vitals: Vital Signs Temp Pulse Pulse Resp BP Pulse Ox 04/11/19 18:00 92 21 126/82 95 04/11/19 17:00 99.4 F 101 H 24 129/83 95 04/11/19 16:00 101 F H 99 27 H 150/88 93 L 04/11/19 15:00 101 H 28 H 142/88 97 04/11/19 14:00 95 27 H 149/90 94 L 04/11/19 13:00 99 28 H 140/84 93 L 04/11/19 12:00 100.3 F H 108 H 33 H 131/86 96 04/11/19 11:00 98 26 H 124/82 92 L 04/11/19 10:00 101 H 25 H 134/92 91 L 04/11/19 09:00 113 H 17 132/92 95 04/11/19 08:00 100.1 F H 100 27 H 144/82 94 L 04/11/19 07:00 100.4 F H 104 H 10 L 157/96 95 04/11/19 06:00 107 H 31 H 167/99 94 L 04/11/19 05:00 116 H 32 H 167/99 94 L 04/11/19 04:00 114 H 37 H 160/100 93 L 04/11/19 03:00 126 H 31 H 141/97 96 04/11/19 02:55 126 H 34 H 141/97 96 04/11/19 02:50 126 H 34 H 141/97 96 04/11/19 02:45 120 H 33 H 141/97 96 04/11/19 02:40 121 H 32 H 162/113 96 04/11/19 02:35 123 H 34 H 162/113 96 04/11/19 02:30 149 H 42 H 162/113 95 04/11/19 02:25 116 H 31 H 162/113 93 L 04/11/19 02:20 120 H 31 H 162/113 93 L 04/11/19 02:15 114 H 32 H 162/113 93 L 04/11/19 02:00 113 H 21 141/98 94 L 04/11/19 01:00 112 H 7 L 143/99 94 L 04/11/19 00:00 99.8 F H 112 H 113 H 7 L 143/99 93 L 04/10/19 23:33 108 H 11 L 147/90 94 L 04/10/19 23:00 100.6 F H 120 H 28 H 147/90 96 04/10/19 22:45 113 H 04/10/19 22:32 95 04/10/19 22:21 115 H 19 147/107 98 04/10/19 22:09 100.6 F H 109 H 20 04/10/19 20:48 99 F 108 H 18 144/100 98 Intake and Output 04/11/19 04/11/19 04/11/19 06:59 14:59 22:59 Intake Total 824.648 899.187 400 Output Total 600 1530 300 Balance 224.648 -630.813 100 Intake: IV 710 800 400 Sodium Chloride 0.9% 1, 710 800 400 000 ml @ 100 mls/hr IV . Q10H [facility] Rx#:[id number] Intake, IV Titration 114.648 99.187 Amount Heparin Sod,Pork in 0.45% 114.648 99.187 NaCl 25,000 unit In 0.45 % NaCl 1 250ml.bag @ 18 UNITS/KG/HR 16.737 mls/hr IV .[id number] [facility] Rx#: [id number] Output: Urine 600 1530 300 Other: Voiding Method Urinal Urinal Urinal Weight 94.8 kg General: well nourished, well developed, NAD. Vitals reviewed Eyes: PERRL, EOMI, conjunctiva normal HENT: normocephalic, mucus membranes moist Neck: supple, no JVD Lungs: normal respiratory effort, no wheezes or rales CV: Regular rate and rhythm, no murmur. Peripheral pulses 2+ Ext: RLE 1+ edema, erythema Abdomen: soft, nondistended, no organomegaly Lymph: no cervical or axillary LAD Skin: warm and dry. Neuro: A&Ox3, normal mood and affect Results CBC & Chem 7: 04/11/19 04:38 04/11/19 04:38 Labs: Abnormal Lab Results - Last 24 Hours (Table) 04/10/19 04/11/19 04/11/19 Range/Units 22:33 01:56 04:38 Lymphocytes # 0.5 L (1.0-4.8) k/uL APTT 70.8 H (22.0-30.0) sec Chloride (98-107) mmol/L Carbon Dioxide (22-30) mmol/L Glucose (74-99) mg/dL POC Glucose (mg/dL) 136 H (75-99) mg/dL Calcium (8.4-10.2) mg/dL LDL Cholesterol, Calc (0-99) mg/dL HDL Cholesterol (40-60) mg/dL 04/11/19 04/11/19 Range/Units 04:38 08:43 Lymphocytes # (1.0-4.8) k/uL APTT 58.3 H (22.0-30.0) sec Chloride 109 H (98-107) mmol/L Carbon Dioxide 21 L (22-30) mmol/L Glucose 116 H (74-99) mg/dL POC Glucose (mg/dL) (75-99) mg/dL Calcium 8.3 L (8.4-10.2) mg/dL LDL Cholesterol, Calc 111 H (0-99) mg/dL HDL Cholesterol 31 L (40-60) mg/dL Microbiology - Last 24 Hours (Table) 04/10/19 16:33 Blood Culture - Preliminary Blood No Growth after 24 hours Thrombosis Risk Factor Assmnt - Choose All That Apply Any of the Below Risk Factors Present?: Yes Each Factor Represents 1 point: Age 41-60 years Each Risk Factor Represents 3 Points: Family history of DVT/PE, History of DVT/PE Thrombosis Risk Factor Assessment Total Risk Factor Score: 7 Thrombosis Risk Factor Assessment Level: High Risk Assessment and Plan (1) Bilateral pulmonary embolism Current Visit: Yes Status: Acute Code(s): I26.99 - OTHER PULMONARY EMBOLISM WITHOUT ACUTE COR PULMONALE SNOMED Code(s): 04180811 (2) Chest pain Current Visit: Yes Status: Acute Code(s): R07.9 - CHEST PAIN, UNSPECIFIED SNOMED Code(s): 04012432 (3) Fever Current Visit: Yes Status: Acute Code(s): R50.9 - FEVER, UNSPECIFIED SNOMED Code(s): 792129703 (4) Influenza A Current Visit: Yes Status: Acute Code(s): J10.1 - FLU DUE TO OTH IDENT INFLUENZA VIRUS W OTH RESP MANIFEST SNOMED Code(s): 713368082 (5) Right leg DVT Current Visit: Yes Status: Acute Code(s): I82.401 - ACUTE EMBOLISM AND T HOMBOS UNSP DEEP VEINS OF R LOW EXTREM SNOMED Code(s): 326768714 Plan: 1. RLE DVT. Bilateral PE. Admit to ICU. Heparin drip, start IVF. Vascular surgery, cardiology and pulmonary consults. Obtain stat echo. Start sildenafil 20 mg tid pending echo 2. Influenza A. Start tamiflu 3. Essential hyperension. Continue norvasc 5 mg
[2019-04-11] MEDS ORDERED: IPRATROPIUM-ALBUTEROL 3 ML NEB INHALATION PRN (20:40)
[2019-04-11] MEDS ORDERED: GABAPENTIN 400 MG CAP PO SCH (21:00)
[2019-04-12] MEDS: MORPHINE SULFATE 4 MG/ML SYRINGE IV PRN ×4 (00:58→19:43)
[2019-04-12] MEDS: SODIUM CHLORIDE 0.9% 1,000 ML IV SCH ×2 (01:02→10:23)
[2019-04-12] MEDS: HEPARIN SOD,PORK IN 0.45% NACL 25,000 UNIT in 0.45% NACL 1 250ML.BAG IV SCH (04:50)
[2019-04-12 06:07] LABS: Partial Thromboplastin Time 57.2 sec (22.0-30.0); Prothrombin Time 10.3 sec (9.0-12.0)
[2019-04-12 06:10] LABS: African American GFR (CKD) >90 (>60 ml/min/1.73 sqM); Anion Gap 6 mmol/L; Blood Urea Nitrogen 9 mg/dL (9-20); Calcium 8.4 mg/dL (8.4-10.2); Carbon Dioxide 23 mmol/L (22-30); Chloride 105 mmol/L (98-107); Glucose 91 mg/dL (74-99); Non-African American GFR(CKD) >90 (>60 ml/min/1.73 sqM); Potassium 4.2 mmol/L (3.5-5.1); Sodium 134 mmol/L (137-145)
[2019-04-12 06:12] LABS: Basophils % (A) 1 %; Eosinophils # (A) 0.1 k/uL (0-0.7); Eosinophils % (A) 1 %; HCT 40.8 % (39.0-53.0); HGB 14.2 gm/dL (13.0-17.5); Lymphocytes # (A) 1.5 k/uL (1.0-4.8); Lymphocytes % (A) 30 %; MCH 30.8 pg (25.0-35.0); MCHC 34.7 g/dL (31.0-37.0); MCV 88.7 fL (80.0-100.0); Monocytes # (A) 0.4 k/uL (0-1.0); Monocytes % (A) 8 %; Neutrophils # (A) 2.7 k/uL (1.3-7.7); Neutrophils % (A) 56 %; Platelet Count 162 k/uL (150-450); RBC 4.61 m/uL (4.30-5.90); RDW 12.5 % (11.5-15.5); WBC 4.8 k/uL (3.8-10.6)
--- NOTE | 2019-04-12 06:32 | XR ---
EXAMINATION TYPE: XR chest 1V portable DATE OF EXAM: 04/12/2019 HISTORY: flu A , pleural effusions. REFERENCE: Previous study dated 04/11/2019. FINDINGS: There is developing left basilar infiltrate. Small left effusion. The right lung appears cl ear. The heart is not enlarged. IMPRESSION: DEVELOPING LEFT-SIDED INFILTRATE WITH A CONCOMITANT EFFUSION.
--- NOTE | 2019-04-12 08:09 | P.PN ---
Subjective Progress Note Date: 04/12/19 Principal diagnosis: Pulmonary embolism This is a very pleasant 43-year-old gentleman with a past medical history significant for hypertension who presented to the emergency room complaining of chest discomfort as well as shortness of breath. 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 For the last 3 days, he has been experiencing chest pain in the middle of the chest as a sharp kind of discomfort without radiation. Beside that he was experiencing increasing in the shortness of breath. Also when he arrived to the emergency room the patient was having severe fever. As a matter of fact when the patient was seen earlier today he was experiencing fever associated with sweating. A computed tomography scan was performed in the emergency room and revealed multi- pulmonary embolism. Currently the patient is on heparin IV. He stated that he is feeling slightly better indeterminable of chest pain and shortness of breath. Currently he is also on isolation regarding flu symptoms. Overall he is hemodynamically stable. In terms off the computed tomography scan revealed multiple PE. The EKG showed sinus tachycardia. The cardiac enzymes were checked and came in to be unremarkable. An echocardiogram is in process to be done. The patient was seen today, thyroid 2019. Overall he is feeling better interventional shortness of breath. He continues to have atypical chest discomfort/pleuritic chest discomfort. He remains hemodynamically stable. He remains in normal sinus mechanism with mild sinus tachycardia. Currently he is on heparin IV which I'm going to stop and start the patient on oral ant icoagulation. The echocardiogram revealed normal left ventricle systolic function And also normal RV size and function Objective - Vital Signs Vital signs: Vital Signs Temp 99.1 F 04/12/19 04:00 Pulse 81 04/12/19 07:00 Resp 17 04/12/19 07:00 BP 127/95 04/12/19 07:00 Pulse Ox 96 04/12/19 07:00 Intake & Output 04/11/19 04/12/19 04/12/19 18:59 06:59 18:59 Intake Total 5859.763 7197 100 Output Total 1830 2450 Balance -530.813 50 100 Weight 97.2 kg Intake: IV 1200 1200 100 Sodium Chloride 0.9% 1, 1200 1200 100 000 ml @ 100 mls/hr IV . Q10H [facility] Rx#:[id number] Intake, IV Titration 99.187 250 Amount Heparin Sod,Pork in 0.45% 99.187 250 NaCl 25,000 unit In 0.45 % NaCl 1 250ml.bag @ 18 UNITS/KG/HR 16.737 mls/hr IV .[id number] [facility] Rx#: [id number] Oral 1050 Output: Urine 1830 2450 Other: Voiding Method Urinal Urinal - Constitutional General appearance: Present: no acute distress - Respiratory Respiratory: bilateral: CTA - Cardiovascular Rhythm: regular Heart sounds: normal: S1, S2 - Labs CBC & Chem 7: 04/12/19 05:20 04/12/19 05:20 Labs: Abnormal Lab Results - Last 24 Hours (Table) 04/11/19 04/12/19 04/12/19 Range/Units 08:43 05:20 05:20 APTT 58.3 H 57.2 H (22.0-30.0) sec Sodium 134 L (137-145) mmol/L Microbiology - Last 24 Hours (Table) 04/10/19 16:33 Blood Culture - Preliminary Blood No Growth after 24 hours Assessment and Plan Assessment: Assessment #1 Provoked DVT/PE #2 chest discomfort secondary to PE #3 flu symptoms #4 hypertension Plan #1 DC heparin IV and start the patient on oral anticoagulation #2 the echocardiogram was reviewed and revealed normal LV function and normal RV size and function #3 follow-up with the patient
[2019-04-12] MEDS: ASPIRIN 81 MG PO SCH (08:56)
[2019-04-12] MEDS: amLODIPine 5 MG TAB PO SCH (08:56)
[2019-04-12] MEDS: OSELTAMIVIR 75 MG CAP PO SCH ×2 (08:56→20:57)
--- NOTE | 2019-04-12 10:05 | P.PN ---
Subjective Progress Note Date: 04/12/19 On today's evaluation of 04/12/2019 the patient is feeling better. He is not having any shortness of breath. No fever or chills. Cough and congestion is subsided. Echocardiogram showed no evidence of any right ventricular strain pattern. No hemoptysis. The patient remains on IV heparin. Right lower extremity swelling is also improving. As such, the patient is feeling much better compared to yesterday. His only on 2 L about 2 by nasal cannula. No diarrhea. No nausea. No vomiting. No emesis. No pleurisy. No other significant events overnight. Objective - Vital Signs Vital signs: Vital Signs Temp 98.7 F 04/12/19 08:00 Pulse 92 04/12/19 09:00 Resp 11 L 04/12/19 09:00 BP 131/83 04/12/19 09:00 Pulse Ox 96 04/12/19 09:00 Intake & Output 04/11/19 04/12/19 04/12/19 18:59 06:59 18:59 Intake Total 2023.518 6819 300 Output Total 1830 2450 300 Balance -530.813 50 0 Weight 97.2 kg Intake: IV 1200 1200 300 Sodium Chloride 0.9% 1, 1200 1200 300 000 ml @ 100 mls/hr IV . Q10H [facility] Rx#:[id number] Intake, IV Titration 99.187 250 Amount Heparin Sod,Pork in 0.45% 99.187 250 NaCl 25,000 unit In 0.45 % NaCl 1 250ml.bag @ 18 UNITS/KG/HR 16.737 mls/hr IV .[id number] [facility] Rx#: [id number] Oral 1050 Output: Urine 1830 2450 300 Other: Voiding Method Urinal Urinal - Exam The patient appeared well nourished and normally developed. Vital signs as documented. Head exam is unremarkable. No scleral icterus or corneal arcus noted. Neck is without jugular venous distension, thyromegaly, or carotid bruits. Carotid upstrokes are brisk bilaterally. Lungs are clear to auscultation and percussion. Cardiac exam reveals the PMI to be normally sized and situated. Rhythm is regular. First and second heart sounds normal. No murmurs, rubs or gallops. Abdominal exam reveals normal bowel sounds, no masses, no organomegaly and no aortic enlargement. Extremities are nonedematous and both femoral and pedal pulses are normal. The patient continues to have some asymmetry lower extremities with a right lower extremity being more swollen compared to the left. Examination of the skin revealed no evidence of significant rashes, suspicious appearing nevi or other concerning lesions. Neurologically the patient is awake and alert and there is no focal neurological deficits. - Labs CBC & Chem 7: 04/12/19 05:20 04/12/19 05:20 Labs: Abnormal Lab Results - Last 24 Hours (Table) 04/12/19 04/12/19 Range/Units 05: 05:20 APTT 57.2 H (22.0-30.0) sec Sodium 134 L (137-145) mmol/L Microbiology - Last 24 Hours (Table) 04/10/19 16:33 Blood Culture - Preliminary Blood No Growth after 24 hours Assessment and Plan Plan: 1 acute bilateral pulmonary embolism secondary to a right lower extremity DVT. This is a recurrent event. The patient had a DVT approximately 2 years ago treated with Coumadin and has been off anticoagulation since. The patient currently is on IV heparin. Echocardiogram is pending regarding the possibility of right ventricular strain or pulmonary hypertension. Meanwhile, troponins are negative and the patient has no strain pattern on his CT angiogram. 2 acute influenza syndrome currently on Tamiflu 3 acute fever secondary to above 4 acute tachycardia secondary to above, sinus 5 acute hypoxic respiratory failure secondary to above 6 chronic smoker 7 questionable history of polycythemia rubra vera, hemoglobin currently is at 14.6 8 hypertension 9 smoker Plan Echocardiogram is noted and the patient has no evidence of RV strain pattern This continued IV heparin and start the patient Eliquis 10 mg by mouth twice a day The patient will be a candidate for a long-term anticoagulation Obtain copies of the Doppler of the lower extremity from [facility] Continue course of Tamiflu IV fluids KVO Wean off the FiO2 and increased level of activity and the patient can be chest or to medical floor.
[2019-04-12] MEDS: APIXABAN 5 MG TAB PO SCH ×2 (10:22→20:57)
--- NOTE | 2019-04-12 16:05 | P.PN ---
Subjective Progress Note Date: 04/12/19 Principal diagnosis: Acute right lower extremity DVT/bilateral PE Acute influenza syndrome Acute hypoxic respiratory failure secondary to above 04/12/2019 the patient is feeling better. He is not having any shortness of breath. No fever or chills. Cough and congestion is subsided. Does complain of pain bilateral lower extremity which improves with IV morphine Echocardiogram showed no evidence of any right ventricular strain pattern. No hemoptysis. The patient remains on IV heparin and is planned to be transitioned to oral anticoagulation therapy today. Right lower extremity swelling is also improving. As such, the patient is feeling much better compared to yesterday. His only on 2 L about 2 by nasal cannula. No diarrhea. No nausea. No vomiting. No emesis. No pleurisy. No other significant events overnight. Objective - Vital Signs Vital signs: Vital Signs Temp 98.7 F 04/12/19 08:00 Pulse 92 04/12/19 10:00 Resp 19 04/12/19 10:00 BP 128/79 04/12/19 10:00 Pulse Ox 97 04/12/19 10:00 Intake & Output 04/11/19 04/12/19 04/12/19 18:59 06:59 18:59 Intake Total 8225.667 6674 400 Output Total 1830 2450 300 Balance -530.813 50 100 Weight 97.2 kg Intake: IV 1200 1200 400 Sodium Chloride 0.9% 1, 1200 1200 400 000 ml @ 100 mls/hr IV . Q10H [facility] Rx#:[id number] Intake, IV Titration 99.187 250 Amount Heparin Sod,Pork in 0.45% 99.187 250 NaCl 25,000 unit In 0.45 % NaCl 1 250ml.bag @ 18 UNITS/KG/HR 16.737 mls/hr IV .[id number] [facility] Rx#: [id number] Oral 1050 Output: Urine 1830 2450 300 Other: Voiding Method Urinal Urinal # Voids 600 - Exam PHYSICAL EXAMINATION: GENERAL: The patient is alert and oriented x3, not in any acute distress. Well developed, well nourished. HEENT: Pupils are round and equally reacting to light. EOMI. No scleral icterus. No conjunctival pallor. Normocephalic, atraumatic. No pharyngeal erythema. No thyromegaly. CARDIOVASCULAR: S1 and S2 present. No murmurs, rubs, or gallops. PULMONARY: Chest is clear to auscultation, no wheezing or crackles. ABDOMEN: Soft, nontender, nondistended, normoactive bowel sounds. No palpable organomegaly. MUSCULOSKELETAL: No joint swelling or deformity. EXTREMITIES: No cyanosis, clubbing, or pedal edema. NEUROLOGICAL: Gross neurological examination did not reveal any focal deficits. SKIN: No rashes. - Labs CBC & Chem 7: 04/12/19 05:20 04/12/19 05:20 Labs: Abnormal Lab Results - Last 24 Hours (Table) 04/12/19 04/12/19 Range/Units 05:20 05:20 APTT 57.2 H (22.0-30.0) sec Sodium 134 L (137-145) mmol/L Microbiology - Last 24 Hours (Table) 04/10/19 16:33 Blood Culture - Preliminary Blood No Growth after 24 hours Assessment and Plan Assessment: 1. Acute bilateral pulmonary embolism secondary to a right lower extremity DVT. This is a recurrent event. The patient had a DVT approximately 2 years ago treated with Coumadin and has been off anticoagulation since. The patient currently is on IV heparin; start the patient Eliquis 10 mg by mouth twice a day. Echocardiogram is pending regarding the possibility of right ventricular strain or pulmonary hypertension. Meanwhile, troponins are negative and the patient has no strain pattern on his CT angiogram. 2. Acute influenza syndrome currently on Tamiflu; decrease IV fluids 3. Acute hypoxic respiratory failure secondary to above; renal of the FiO2 and increase activity as tolerated 4. Chronic smoker; counseling done on need for cessation of smoking 5. Questionable history of polycythemia rubra vera, hemoglobin currently is at 14.6 6. Hypertension; stable on home dose of Norvasc 5 mg daily DVT prophylaxis; SCDs/chronic anticoagulation CODE STATUS; full code
[2019-04-12] MEDS: SILDENAFIL 20 MG TAB PO SCH (17:15)
[2019-04-13 06:49] LABS: Basophils % (A) 1 %; Eosinophils # (A) 0.4 k/uL (0-0.7); Eosinophils % (A) 8 %; HCT 39.9 % (39.0-53.0); HGB 14.1 gm/dL (13.0-17.5); Lymphocytes # (A) 1.1 k/uL (1.0-4.8); Lymphocytes % (A) 23 %; MCH 31.2 pg (25.0-35.0); MCHC 35.3 g/dL (31.0-37.0); MCV 88.2 fL (80.0-100.0); Mean Platelet Volume 7.8; Monocytes # (A) 0.3 k/uL (0-1.0); Monocytes % (A) 6 %; Neutrophils # (A) 2.8 k/uL (1.3-7.7); Neutrophils % (A) 59 %; Platelet Count 211 k/uL (150-450); RBC 4.53 m/uL (4.30-5.90); RDW 12.4 % (11.5-15.5); WBC 4.8 k/uL (3.8-10.6)
--- NOTE | 2019-04-13 06:54 | XR ---
EXAMINATION TYPE: XR chest 1V portable DATE OF EXAM: 04/13/2019 HISTORY: flu A , pleural effusions. REFERENCE: Previous study dated 04/12/2019. FINDINGS: There is improved aeration within the left lung. There continues be a small left effusion. Heart size is upper limits of normal. IMPRESSION: IMPROVED AERATION, LEFT LUNG.
[2019-04-13 07:11] LABS: INR 0.9 (<1.2); Partial Thromboplastin Time 24.3 sec (22.0-30.0); Prothrombin Time 9.8 sec (9.0-12.0)
[2019-04-13] MEDS: MORPHINE SULFATE 4 MG/ML SYRINGE IV PRN ×2 (08:10→12:45)
[2019-04-13] MEDS: amLODIPine 5 MG TAB PO SCH (08:11)
[2019-04-13] MEDS: ASPIRIN 81 MG PO SCH (08:11)
[2019-04-13] MEDS: APIXABAN 5 MG TAB PO SCH ×2 (08:11→21:09)
[2019-04-13] MEDS: OSELTAMIVIR 75 MG CAP PO SCH ×2 (09:38→21:57)
--- NOTE | 2019-04-13 10:11 | P.PN ---
Subjective Progress Note Date: 04/13/19 Principal diagnosis: Pulmonary embolism This is a very pleasant 43-year-old gentleman with a past medical history significant for hypertension who presented to the emergency room complaining of chest discomfort as well as shortness of breath. 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 For the last 3 days, he has been experiencing chest pain in the middle of the chest as a sharp kind of discomfort without radiation. Beside that he was experiencing increasing in the shortness of breath. Also when he arrived to the emergency room the patient was having severe fever. As a matter of fact when the patient was seen earlier today he was experiencing fever associated with sweating. A computed tomography scan was performed in the emergency room and revealed multi- pulmonary embolism. Currently the patient is on heparin IV. He stated that he is feeling slightly better indeterminable of chest pain and shortness of breath. Currently he is also on isolation regarding flu symptoms. Overall he is hemodynamically stable. In terms off the computed tomography scan revealed multiple PE. The EKG showed sinus tachycardia. The cardiac enzymes were checked and came in to be unremarkable. An echocardiogram is in process to be done. The patient was seen today, April [id number]. He continues to have right leg discomfort as well as pleuritic chest discomfort. Hemodynamically he is stable. He is in normal sinus mechanism. He is on oral anticoagulation. Objective - Vital Signs Vital signs: Vital Signs Temp 98.1 F 04/13/19 08:18 Pulse 93 04/13/19 08:18 Resp 20 04/13/19 08:18 BP 142/90 04/13/19 08:18 Pulse Ox 99 04/13/19 08:18 Intake & Output 04/12/19 04/13/19 04/13/19 18:59 06:59 18:59 Intake Total 520 Output Total 1500 Balance -980 Weight 97.1 kg Intake: IV 400 Sodium Chloride 0.9% 1, 400 000 ml @ 100 mls/hr IV . Q10H [facility] Rx#:[id number] Intake, IV Titration 120 Amount Sodium Chloride 0.9% 1, 120 000 ml @ 20 mls/hr IV . Q24H [facility] Rx#:[id number] Output: Urine 1500 Other: Voiding Method Urinal Toilet Toilet # Voids 0 2 - Constitutional General appearance: Present: no acute distress - Respiratory Respiratory: bilateral: CTA - Cardiovascular Rhythm: regular Heart sounds: normal: S1, S2 - Labs CBC & Chem 7: 04/13/19 06:33 04/12/19 05:20 Labs: Microbiology - Last 24 Hours (Table) 04/10/19 16:33 Blood Culture - Preliminary Blood No Growth after 48 hours Assessment and Plan Assessment: Assessment #1 Provoked DVT/PE #2 chest discomfort secondary to PE #3 flu symptoms #4 hypertension Plan #1 continue the current medical regimen #2 follow-up with the patient
[2019-04-13] MEDS: SODIUM CHLORIDE 0.9% 1,000 ML IV SCH (11:01)
--- NOTE | 2019-04-13 14:27 | P.PN ---
Subjective Progress Note Date: 04/13/19 On today's evaluation of 04/13/2019, the patient is complaining of some pleuritic right-sided chest pain and he is also complaining of some pain in the right lower extremity. No fever. No chills. Cough and congestion is improved as the patient is recovering from his acute influenza limits. He has been taken off the IV heparin has been switched to Eliquis. His taken morphine for pain control at a dose of 4 mg every 6 hours. He also has notable 5 every 6-8 hours on a when necessary basis. The patient's hemoglobin is stable. No significant leukocytosis. No other new complaints otherwise for now. Objective - Vital Signs Vital signs: Vital Signs Temp 98.1 F 04/13/19 08:18 Pulse 93 04/13/19 08:18 Resp 20 04/13/19 08:18 BP 142/90 04/13/19 08:18 Pulse Ox 99 04/13/19 08:18 Intake & Output 04/12/19 04/13/19 04/13/19 18:59 06:59 18:59 Intake Total 520 Output Total 1500 Balance -980 Weight 97.1 kg Intake: IV 400 Sodium Chloride 0.9% 1, 400 000 ml @ 100 mls/hr IV . Q10H [facility] Rx#:[id number] Intake, IV Titration 120 Amount Sodium Chloride 0.9% 1, 120 000 ml @ 20 mls/hr IV . Q24H [facility] Rx#:[id number] Output: Urine 1500 Other: Voiding Method Urinal Toilet Toilet # Voids 0 2 - Exam The patient appeared well nourished and normally developed. Vital signs as documented. Head exam is unremarkable. No scleral icterus or corneal arcus noted. Neck is without jugular venous distension, thyromegaly, or carotid bruits. Carotid upstrokes are brisk bilaterally. Lungs are clear to auscultation and percussion. Cardiac exam reveals the PMI to be normally sized and situated. Rhythm is regular. First and second heart sounds normal. No murmurs, rubs or gallops. Abdominal exam reveals normal bowel sounds, no masses, no organomegaly and no aortic enlargement. Extremities are nonedematous and both femoral and pedal pulses are normal. The patient continues to have some asymmetry lower extremities with a right lower extremity being more swollen compared to the le ft. Examination of the skin revealed no evidence of significant rashes, suspicious appearing nevi or other concerning lesions. Neurologically the patient is awake and alert and there is no focal neurological deficits. - Labs CBC & Chem 7: 04/13/19 06:33 04/12/19 05:20 Labs: Microbiology - Last 24 Hours (Table) 04/10/19 16:33 Blood Culture - Preliminary Blood No Growth after 48 hours Assessment and Plan Plan: 1 acute bilateral pulmonary embolism secondary to a right lower extremity DVT. This is a recurrent event. The patient had a DVT approximately 2 years ago treated with Coumadin and has been off anticoagulation since. The patient currently is on IV heparin. Echocardiogram is pending regarding the possibility of right ventricular strain or pulmonary hypertension. Meanwhile, troponins are negative and the patient has no strain pattern on his CT angiogram. The patient is currently on Eliquis. Expressing some ongoing pleuritic right-sided chest pain. 2 acute influenza syndrome currently on Tamiflu, improving 3 acute fever secondary to above, recovered 4 acute tachycardia secondary to above, sinus, recovered 5 acute hypoxic respiratory failure secondary to above, still on oxygen at 2 L 6 chronic smoker 7 questionable history of polycythemia rubra vera, hemoglobin currently is at 14.6 8 hypertension 9 smoker Plan Eliquis 10 mg by mouth twice a day CLEMENTE hose or compression stockings to the right lower extremity Increase mobility Pain control with morphine and [place] Repeat chest x-ray The patient will be a candidate for a long-term anticoagulation Obtain copies of the Doppler of the lower extremity from [facility] Continue course of Tamiflu IV fluids KVO
[2019-04-13] MEDS: MORPHINE SULFATE 4 MG/ML SYRINGE IVP PRN ×2 (15:52→21:58)
--- NOTE | 2019-04-13 15:55 | P.PN ---
Subjective Progress Note Date: 04/13/19 Principal diagnosis: Acute right lower extremity DVT/bilateral PE Acute influenza syndrome Acute hypoxic respiratory failure secondary to above 04/12/2019 the patient is feeling better. He is not having any shortness of breath. No fever or chills. Cough and congestion is subsided. Does complain of pain bilateral lower extremity which improves with IV morphine Echocardiogram showed no evidence of any right ventricular strain pattern. No hemoptysis. The patient remains on IV heparin and is planned to be transitioned to oral anticoagulation therapy today. Right lower extremity swelling is also improving. As such, the patient is feeling much better compared to yesterday. His only on 2 L about 2 by nasal cannula. No diarrhea. No nausea. No vomiting. No emesis. No pleurisy. No other significant events overnight. 04/13/2019 Patient is seen and evaluated on medical floor; complains of moderate to severe pleuritic right-sided chest pain along with severe pain right lower extremity relieved only with IV morphine; denies any cough or shortness of breath Patient remains on Tamiflu for his acute influenza infection; IV heparin is dis continued and patient is switched to Eliquis; patient is taking morphine 4 mg every 6 hours along with [place] 5 mg every 6 hours when necessary for breakthrough; pulmonary is following and recommending CLEMENTE hose of or compression stockings to right lower extremity and increase mobility; repeat chest x-ray is ordered to follow-up on chest pain Objective - Vital Signs Vital signs: Vital Signs Temp 98.1 F 04/13/19 08:18 Pulse 93 04/13/19 08:18 Resp 20 04/13/19 08:18 BP 142/90 04/13/19 08:18 Pulse Ox 99 04/13/19 08:18 Intake & Output 04/12/19 04/13/19 04/13/19 18:59 06:59 18:59 Intake Total 520 Output Total 1500 Balance -980 Weight 97.1 kg Intake: IV 400 Sodium Chloride 0.9% 1, 400 000 ml @ 100 mls/hr IV . Q10H [facility] Rx#:[id number] Intake, IV Titration 120 Amount Sodium Chloride 0.9% 1, 120 000 ml @ 20 mls/hr IV . Q24H [facility] Rx#:[id number] Output: Urine 1500 Other: Voiding Method Urinal Toilet Toilet # Voids 0 2 - Exam PHYSICAL EXAMINATION: GENERAL: The patient is alert and oriented x3, not in any acute distress. Well developed, well nourished. HEENT: Pupils are round and equally reacting to light. EOMI. No scleral icterus. No conjunctival pallor. Normocephalic, atraumatic. No pharyngeal erythema. No thyromegaly. CARDIOVASCULAR: S1 and S2 present. No murmurs, rubs, or gallops. PULMONARY: Chest is clear to auscultation, no wheezing or crackles. ABDOMEN: Soft, nontender, nondistended, normoactive bowel sounds. No palpable organomegaly. MUSCULOSKELETAL: No joint swelling or deformity. EXTREMITIES: No cyanosis, clubbing, or pedal edema. NEUROLOGICAL: Gross neurological examination did not reveal any focal deficits. SKIN: No rashes. - Labs CBC & Chem 7: 04/13/19 06:33 04/12/19 05:20 Labs: Microbiology - Last 24 Hours (Table) 04/10/19 16:33 Blood Culture - Preliminary Blood No Growth after 48 hours Assessment and Plan Assessment: 1. Acute bilateral pulmonary embolism secondary to a right lower extremity DVT. This is a recurrent event. The patient had a DVT approximately 2 years ago treated with Coumadin and has been off anticoagulation since. The patient currently is on IV heparin; start the patient Eliquis 10 mg by mouth twice a day. Echocardiogram is pending regarding the possibility of right ventricular strain or pulmonary hypertension. Meanwhile, troponins are negative and the patient has no strain pattern on his CT angiogram. 2. Acute influenza syndrome currently on Tamiflu; decrease IV fluids 3. Acute hypoxic respiratory failure secondary to above; renal of the FiO2 and increase activity as tolerated 4. Chronic smoker; counseling done on need for cessation of smoking 5. Questionable history of polycythemia rubra vera, hemoglobin currently is at 14.6 6. Hypertension; stable on home dose of Norvasc 5 mg daily DVT prophylaxis; SCDs/chronic anticoagulation CODE STATUS; full code
[2019-04-14] MEDS: HYDROcodone/APAP 5-325MG 1 EACH TAB PO PRN ×2 (07:00→14:11)
[2019-04-14] MEDS: ASPIRIN 81 MG PO SCH (07:37)
[2019-04-14] MEDS: amLODIPine 5 MG TAB PO SCH (07:37)
[2019-04-14] MEDS: APIXABAN 5 MG TAB PO SCH (07:37)
[2019-04-14] MEDS: OSELTAMIVIR 75 MG CAP PO SCH (07:37)
[2019-04-14 07:39] VITALS: BP 135/83; PULSE 87; RESP 17; TEMP 98.5
--- NOTE | 2019-04-14 08:20 | XR ---
EXAMINATION TYPE: XR chest 1V portable DATE OF EXAM: 04/14/2019 COMPARISON: Prior chest x-ray 04/13/2019 HISTORY: Influenza A, pleural effusions, pulmonary embolism TECHNIQUE: Single frontal view of the chest is obtained. FINDINGS: Subsegmental basilar atelectatic changes are noted. There is no evident pneumothorax pleur al effusion. Heart size is stable. There are overlying cardiac leads. IMPRESSION: Bilateral atelectasis.
--- NOTE | 2019-04-14 09:47 | P.PN ---
Subjective Progress Note Date: 04/14/19 Principal diagnosis: Influenza A infection, right-sided pleuritic chest pain and right ankle pain related to acute bilateral pulmonary emboli and recurrent right lower extremity DVT On 04/14/2019 patient seen in follow-up on general medical floor. She is awake and alert, oriented 3, still has some discomfort in his right ankle, however it is improved, patient's pain is controlled with oral Troy's. Right-sided pleuritic chest pain has also improved, patient denies any acute distress, afebrile, hemodynamically stable, on room air, room air pulse ox is 94%. Remains on Tamiflu for influenza A infection. Lung sounds reveal bibasilar crackles, no rhonchi, no wheezing. Today's chest x-ray has been reviewed showing bilateral atelectasis. Patient has been started on oral Eliquis, heparin drip has been discontinued. Objective - Vital Signs Vital signs: Vital Signs Temp 98.5 F 04/14/19 07:00 Pulse 87 04/14/19 07:00 Resp 17 04/14/19 07:00 BP 135/83 04/14/19 07:00 Pulse Ox 94 L 04/14/19 07:00 Intake & Output 04/13/19 04/14/19 04/14/19 18:59 06:59 18:59 Intake Total 160 Balance 160 Weight 97.3 kg Intake: Intake, IV Titration 160 Amount Sodium Chloride 0.9% 1, 160 000 ml @ 20 mls/hr IV . Q24H [facility] Rx#:[id number] Other: Voiding Method Toilet Toilet # Voids 1 - Exam GENERAL EXAM: Alert, very pleasant, 43-year-old white male, on room air, with a pulse ox of 94% comfortable in no apparent distress. HEAD: Normocephalic/atraumatic. EYES: Normal reaction of pupils, equal size. Conjunctiva pink, sclera white. NOSE: Clear with pink turbinates. THROAT: No erythema or exudates. NECK: No masses, no JVD, no thyroid enlargement, no adenopathy. CHEST: No chest wall deformity. Symmetrical expansion. LUNGS: Equal air entry with basilar crackles, but no wheeze, rhonchi or dullness. CVS: Regular rate and rhythm, normal S1 and S2, no gallops, no murmurs, no rubs ABDOMEN: Soft, nontender. No hepatosplenomegaly, normal bowel sounds, no guarding or rigidity. EXTREMITIES: No clubbing, no edema, no cyanosis, 2+ pulses and upper and lower extremities. Right calf circumference is slightly bigger than the left calf circumference patient has bilateral knee-high teds on, no pitting edema noted MUSCULOSKELETAL: Muscle strength and tone normal. SPINE: No scoliosis or deformity SKIN: No rashes CENTRAL NERVOUS SYSTEM: Alert and oriented -3. No focal deficits, tone is no rmal in all 4 extremities. PSYCHIATRIC: Alert and oriented -3. Appropriate affect. Intact judgment and insight. - Labs CBC & Chem 7: 04/13/19 06:33 04/12/19 05:20 Labs: Microbiology - Last 24 Hours (Table) 04/10/19 16:33 Blood Culture - Preliminary Blood No Growth after 72 hours Assessment and Plan Plan: Assessment: 1 acute bilateral pulmonary embolism secondary to a right lower extremity DVT. This is a recurrent event. The patient had a DVT approximately 2 years ago treated with Coumadin and has been off anticoagulation since. The patient currently is on IV heparin. Echocardiogram is pending regarding the possibility of right ventricular strain or pulmonary hypertension. Meanwhile, troponins are negative and the patient has no strain pattern on his CT angiogram. The patient is currently on Eliquis. Expressing some ongoing pleuritic right-sided chest pain. 2 acute influenza syndrome currently on Tamiflu, improving 3 acute fever secondary to above, recovered 4 acute tachycardia secondary to above, sinus, recovered 5 acute hypoxic respiratory failure secondary to above, still on oxygen at 2 L 6 chronic smoker 7 questionable history of polycythemia rubra vera, hemoglobin currently is at 14.6 8 hypertension 9 smoker Plan: Continue current medical treatment, patient has been transitioned over to oral anticoagulation in the form of Eliquis, hemodynamically patient remains stable, right-sided pleuritic chest pain and right ankle pain has subsided, increase activity as tolerated, provide incentive spirometer, today's chest x-ray has been reviewed showing bilateral atelectasis. No fever or chills, vital signs are stable, no signs of respiratory distress, patient is on room air Possible discharge home today or tomorrow will need outpatient follow-up with Dr. Tan in the office in 7-10 days I performed a history & physical examination of the patient and discussed their management with my nurse practitioner, Demetrice Smith. I reviewed the nurse practitioner's note and agree with the documented findings and plan of care. Lung sounds are positive for diminished breath sounds. The findings and the impression was discussed with the patient. I attest to the documentation by the nurse practitioner. Time with Patient: Less than 30
--- NOTE | 2019-04-14 21:37 | P.DS ---
Providers Date of admission: 04/10/19 19:54 Expected date of discharge: 04/14/19 Attending physician: Min Linton MD Consults: 04/10/19 19:54 Consult Physician Urgent Consulting Provider: Stephanie Ledezma Consult Reason/Comments: cp Do you want consulting provider notified?: Yes 04/13/19 14:11 Consult Physician Routine Consulting Provider: Mily Tan Consult Reason/Comments: flu a Do you want consulting provider notified?: Already Contacted Primary care physician: Mary Burdick - Discharge Diagnosis(es) (1) Bilateral pulmonary embolism Status: Acute (2) Chest pain Status: Acute (3) Fever Status: Acute (4) Influenza A Status: Acute (5) Right leg DVT Status: Acute Hospital Course: Chon Marin is a 43 yo M with PMH significant for hypertension who presented to the ED with shortness of breath and newly diagnosed DVT. He works as a [employer] dedicated truck driver and about 3 weeks ago noticed R leg swelling, erythema and tenderness. He did not see a physician at that time. Pt states about 3 days ago he began to experience cough and congestion, and yesterday developed shortness of breath. He was seen at his PCP office and was found to be febrile and tachycardic. Ultrasound showed DVT and pt was recommended to present to the ED. On presentation, HR 132, BP 130/80, T 102.2. EKG sinus tachycardia, CTA with prominent bilateral PE without evidence of R heart strain. Pt was admitted initially to the ICU and started on heparin drip. He was seen by cardiology and pulmonary. Pt was maintained on tamiflu and pain was controlled initially with morphine and later with norco. He did remain hemodynamically stable and was transitioned to eliquis. His pain cough and dypsnea continued to improve. Pt is discharged in stable condition, is recommended to continue loading dose of 10 mg eliquis bid for 1 week then 5 mg bid after. He is recommended to avoid flying and prolonged car trips and will follow up with PCP and Cardiology within 1 week. Discharge exam: General: well nourished, well developed, NAD. Vitals reviewed HENT: normocephalic, mucus membranes moist Lungs: normal respiratory effort, no wheezes or rales CV: Regular rate and rhythm, no murmur. Peripheral pulses 2+ Abdomen: soft, nondistended, no organomegaly Skin: warm and dry. Neuro: A&Ox3, normal mood and affect Patient Condition at Discharge: Serious Plan - Discharge Summary Discharge Rx Participant: No New Discharge Prescriptions: New Apixaban [Eliquis] 10 mg PO BID #60 tab Oseltamivir [Tamiflu] 75 mg PO Q12HR #3 cap Continue amLODIPine [Norvasc] 5 mg PO DAILY Gabapentin 150 - 300 mg PO HS PRN PRN Reason: HEADACHES Aspirin EC [Ecotrin Low Dose] 81 mg PO DAILY Discharge Medication List Aspirin EC [Ecotrin Low Dose] 81 mg PO DAILY 04/10/19 [History] Gabapentin 150 - 300 mg PO HS PRN 04/10/19 [History] amLODIPine [Norvasc] 5 mg PO DAILY 04/10/19 [History] Apixaban [Eliquis] 10 mg PO BID #60 tab 04/14/19 [Rx] Oseltamivir [Tamiflu] 75 mg PO Q12HR #3 cap 04/14/19 [Rx] Follow up Appointment(s)/Referral(s): Brenden Marx MD [STAFF PHYSICIAN] - 04/28/19 4:00 pm Melissa Torres NPC [Nurse Practitioner] - 04/25/19 2:45 pm Francia Nguyễn PAC [REFERRING] - 04/17/19 11:00 am Patient Instructions/Handouts: Pulmonary Embolism (DC), Deep Vein Thrombosis (DC), Influenza (DC) Discharge Disposition: HOME SELF-CARE
== END 2019-04-14 14:15 | disposition home or self-care (01) | DRG 175 ==
LOC: EC 16:01 → 2SICU 19:54 → 4SSUR 04-12 17:22
PROVIDERS: ADMIT Family Medicine; ATTEND Family Medicine
DX: I26.99 Other pulmonary embolism without acute cor pulmonale (principal); J96.01 Acute respiratory failure with hypoxia; I82.431 Acute embolism and thrombosis of right popliteal vein; D45 Polycythemia vera; F17.200 Nicotine dependence, unspecified, uncomplicated; R00.0 Tachycardia, unspecified; J10.1 Influenza due to other identified influenza virus with other respiratory manifestations; I10 Essential (primary) hypertension; Z79.82 Long term (current) use of aspirin; Z79.899 Other long term (current) drug therapy; Z90.49 Acquired absence of other specified parts of digestive tract; Z98.890 Other specified postprocedural states; Z71.6 Tobacco abuse counseling; Z86.718 Personal history of other venous thrombosis and embolism; Z88.0 Allergy status to penicillin
CPT/HCPCS: 36415; 71045; 71275; 80048; 80053; 80061; 81003; 83605; 83735; 83880; 84100; 84439; 84443; 84484; 85025; 85610; 85730; 87040; 87502; 93005; 93306; 94640; 96361; 96365; 96366; 96376; 99291

== ENCOUNTER 2019-10-20 19:17 | Observation (INO) | payer OTHER ==
[2019-10-20] MEDS ORDERED: LORazepam 2 MG/ML INJ IV STA (19:35)
--- NOTE | 2019-10-20 19:40 | ED ---
General Adult HPI - General Chief complaint: Chest Pain Stated complaint: Chest Pain Time Seen by Provider: 10/20/19 19:24 Source: patient, EMS, RN notes reviewed Mode of arrival: EMS Limitations: no limitations - History of Present Illness Initial comments: Patient is a pleasant 43-year-old male presenting to the emergency Department with chest discomfort. Patient is anxious and a poor historian. EMS reports patient was hyperventilating. EMS gave aspirin and 2 nitroglycerin and 100 mg of fentanyl with improvement of symptoms down to a 7/10. Patient states chest discomfort is only mild heaviness at this time. Patient states he is having some right lower abdominal discomfort. Patient has a difficult time providing history. EMS did obtain further history that there is relationship problems ever been discussed prior to onset of symptoms. patient denies alcohol and street drug use - Related Data Home Medications Medication Instructions Recorded Confirmed Aspirin EC [Ecotrin Low Dose] 81 mg PO DAILY 04/10/19 04/10/19 Gabapentin 150 - 300 mg PO HS PRN 04/10/19 04/10/19 amLODIPine [Norvasc] 5 mg PO DAILY 04/10/19 04/10/19 Previous Rx's Medication Instructions Recorded Apixaban [Eliquis] 10 mg PO BID #60 tab 04/14/19 Oseltamivir [Tamiflu] 75 mg PO Q12HR #3 cap 04/14/19 Allergies Allergy/AdvReac Type Severity Reaction Status Date / Time Penicillins Allergy FAMILY Verified 04/10/19 20:16 HISTORY Review of Systems ROS Statement: Those systems with pertinent positive or pertinent negative responses have been documented in the HPI. ROS Other: All systems not noted in ROS Statement are negative. Constitutional: Denies: fever Eyes: Denies: eye pain ENT: Denies: ear pain Respiratory: Denies: cough, dyspnea (Patient denies dyspnea) Cardiovascular: Reports: as per HPI, chest pain Endocrine: Denies: fatigue Gastrointestinal: Denies: abdominal pain Genitourinary: Denies: dysuria Musculoskeletal: Denies: back pain Skin: Denies: rash Neurological: Denies: headache Psychiatric: Denies: anxiety (Patient denies feeling anxious) Past Medical History Past Medical History: No Reported History, Deep Vein Thrombosis (DVT), Hypertension Additional Past Medical History / Comment(s): hernia repair, 1998 , tonsillectomy, dvts polycythemia vera History of Any Multi-Drug Resistant Organisms: None Reported Past Surgical History: Cholecystectomy, Hernia Repair Additional Past Surgical History / Comment(s): LEFT INGUINAL HERNIA Past Anesthesia/Blood Transfusion Reactions: Motion Sickness Past Psychological History: No Psychological Hx Reported Past Alcohol Use History: Rare Past Drug Use History: None Reported - Past Family History Mother Family Medical History: No Reported History General Exam Limitations: no limitations General appearance: alert, anxious Head exam: Present: normocephalic Eye exam: Present: normal appearance, PERRL, EOMI ENT exam: Present: normal oropharynx Neck exam: Present: normal inspection Respiratory exam: Present: normal lung sounds bilaterally Cardiovascular Exam: Present: tachycardia Expanded Peripheral pulses: 2+: Radial (R), Radial (L), Dorsalis Pedis (R), Dorsalis Pedis (L) GI/Abdominal exam: Present: soft, tenderness (Mild tenderness right lower). Absent: distended Extremities exam: Present: normal inspection Neurological exam: Present: alert. Absent: motor sensory deficit Psychiatric exam: Present: anxious Skin exam: Present: normal color Course Vital Signs 10/20/19 10/20/19 10/20/19 19:23 19:50 19:55 Temperature 98.4 F Pulse Rate 110 H 90 Respiratory 22 19 27 H Rate Blood Pressure 121/101 133/94 O2 Sat by Pulse 98 95 Oximetry 10/20/19 20:47 Temperature Pulse Rate 96 Respiratory 18 Rate Blood Pressure 137/92 O2 Sat by Pulse 97 Oximetry EKG Findings - EKG Comments: EKG Findings:: Sinus tachycardia 107. SC 136. QRS 92. QT 354. QTC 472. Normal axis. Normal QRS. Nonspecific T waves. Medical Decision Making - Medical Decision Making Patient reevaluated and resting comfortably in bed. Patient still complains of only mild discomfort in his chest. Patient updated on results and plan. Case was discussed in detail with Dr. Hensley, who will admit current for Dr. Burdick. - Lab Data Result diagrams: 10/20/19 19:34 10/20/19 19:34 Lab Results 10/20/19 10/20/19 10/20/19 Range/Units 19:34 19:34 19:34 WBC 6.1 (3.8-10.6) k/uL RBC 5.26 (4.30-5.90) m/uL Hgb 15.7 (13.0-17.5) gm/dL Hct 45.7 (39.0-53.0) % MCV 86.8 (80.0-100.0) fL MCH 29.8 (25.0-35.0) pg MCHC 34.3 (31.0-37.0) g/dL RDW 12.9 (11.5-15.5) % Plt Count 254 (150-450) k/uL Neutrophils % 56 % Lymphocytes % 30 % Monocytes % 7 % Eosinophils % 3 % Basophils % 1 % Neutrophils # 3.4 (1.3-7.7) k/uL Lymphocytes # 1.8 (1.0-4.8) k/uL Monocytes # 0.4 (0-1.0) k/uL Eosinophils # 0.2 (0-0.7) k/uL Basophils # 0.1 (0-0.2) k/uL PT 10.2 (9.0-12.0) sec INR 1.0 (<1.2) APTT 22.1 (22.0-30.0) sec Sodium 136 L (137-145) mmol/L Potassium 4.8 (3.5-5.1) mmol/L Chloride 108 H (98-107) mmol/L Carbon Dioxide 20 L (22-30) mmol/L Anion Gap 8 mmol/L BUN 18 (9-20) mg/dL Creatinine 0.94 (0.66-1.25) mg/dL Est GFR (CKD-EPI)AfAm >90 (>60 ml/min/1.73 sqM) Est GFR (CKD-EPI)NonAf >90 (>60 ml/min/1.73 sqM) Glucose 109 H (74-99) mg/dL Calcium 9.7 (8.4-10.2) mg/dL Magnesium 2.1 (1.6-2.3) mg/dL Total Bilirubin 1.2 (0.2-1.3) mg/dL AST 33 (17-59) U/L ALT 24 (4-49) U/L Alkaline Phosphatase 76 (38-126) U/L Troponin I (0.000-0.034) ng/mL Total Protein 7.2 (6.3-8.2) g/dL Albumin 4.3 (3.5-5.0) g/dL Amylase 63 (30-110) U/L Lipase 125 (23-300) U/L Serum Alcohol <10 mg/dL 10/20/19 Range/Units 19:34 WBC (3.8-10.6) k/uL RBC (4.30-5.90) m/uL Hgb (13.0-17.5) gm/dL Hct (39.0-53.0) % MCV (80.0-100.0) fL MCH (25.0-35.0) pg MCHC (31.0-37.0) g/dL RDW (11.5-15.5) % Plt Count (150-450) k/uL Neutrophils % % Lymphocytes % % Monocytes % % Eosinophils % % Basophils % % Neutrophils # (1.3-7.7) k/uL Lymphocytes # (1.0-4.8) k/uL Monocytes # (0-1.0) k/uL Eosinophils # (0-0.7) k/uL Basophils # (0-0.2) k/uL PT (9.0-12.0) sec INR (<1.2) APTT (22.0-30.0) sec Sodium (137-145) mmol/L Potassium (3.5-5.1) mmol/L Chloride (98-107) mmol/L Carbon Dioxide (22-30) mmol/L Anion Gap mmol/L BUN (9-20) mg/dL Creatinine (0.66-1.25) mg/dL Est GFR (CKD-EPI)AfAm (>60 ml/min/1.73 sqM) Est GFR (CKD-EPI)NonAf (>60 ml/min/1.73 sqM) Glucose (74-99) mg/dL Calcium (8.4-10.2) mg/dL Magnesium (1.6-2.3) mg/dL Total Bilirubin (0.2-1.3) mg/dL AST (17-59) U/L ALT (4-49) U/L Alkaline Phosphatase (38-126) U/L Troponin I <0.012 (0.000-0.034) ng/mL Total Protein (6.3-8.2) g/dL Albumin (3.5-5.0) g/dL Amylase (30-110) U/L Lipase (23-300) U/L Serum Alcohol mg/dL - Radiology Data Radiology results: report reviewed (CT angios of the thorax and abdomen and pelvis shows no acute process.) Disposition Clinical Impression: Chest pain Disposition: ADMITTED IP TO THIS HOSP Is patient prescribed a controlled substance at d/c from ED?: No Referrals: Mary Burdick DO [Primary Care Provider] - 1-2 days Decision Time: 21:08
[2019-10-20 20:01] LABS: Basophils # (A) 0.1 k/uL (0-0.2); Basophils % (A) 1 %; Eosinophils # (A) 0.2 k/uL (0-0.7); Eosinophils % (A) 3 %; HCT 45.7 % (39.0-53.0); HGB 15.7 gm/dL (13.0-17.5); Lymphocytes # (A) 1.8 k/uL (1.0-4.8); Lymphocytes % (A) 30 %; MCH 29.8 pg (25.0-35.0); MCHC 34.3 g/dL (31.0-37.0); MCV 86.8 fL (80.0-100.0); Mean Platelet Volume 7.8; Monocytes # (A) 0.4 k/uL (0-1.0); Monocytes % (A) 7 %; Neutrophils # (A) 3.4 k/uL (1.3-7.7); Neutrophils % (A) 56 %; Platelet Count 254 k/uL (150-450); RBC 5.26 m/uL (4.30-5.90); RDW 12.9 % (11.5-15.5); WBC 6.1 k/uL (3.8-10.6)
[2019-10-20 20:10] LABS: Partial Thromboplastin Time 22.1 sec (22.0-30.0); Prothrombin Time 10.2 sec (9.0-12.0)
[2019-10-20 20:12] LABS: ALT 24 U/L (4-49); AST 33 U/L (17-59); African American GFR (CKD) >90 (>60 ml/min/1.73 sqM); Albumin 4.3 g/dL (3.5-5.0); Alcohol <10 mg/dL; Alkaline Phosphatase 76 U/L (38-126); Amylase 63 U/L (30-110); Anion Gap 8 mmol/L; Blood Urea Nitrogen 18 mg/dL (9-20); Calcium 9.7 mg/dL (8.4-10.2); Carbon Dioxide 20 mmol/L (22-30); Chloride 108 mmol/L (98-107); Glucose 109 mg/dL (74-99); Magnesium 2.1 mg/dL (1.6-2.3); Non-African American GFR(CKD) >90 (>60 ml/min/1.73 sqM); Potassium 4.8 mmol/L (3.5-5.1); Sodium 136 mmol/L (137-145); Total Bilirubin 1.2 mg/dL (0.2-1.3); Total Protein 7.2 g/dL (6.3-8.2)
--- NOTE | 2019-10-20 20:41 | CT ---
EXAMINATION TYPE: CT angio thor/abd pel aorta DATE OF EXAM: 10/20/2019 COMPARISON: HISTORY: Chest and right sided abdominal pain. CT DLP: 2920.8 mGycm Automated exposure control for dose reduction was used. CONTRAST: Performed without and with IV Contrast, patient injected with 100ml mL of Isovue 370. Images were obtained from the thoracic inlet to the floor the pelvis without and subsequently with IV contrast. There are 3-D post processed images. The lungs are clear of consolidation. There is mild subsegmental atelectasis at the posterior lung fi elds. There is no pleural effusion. There is no pericardial effusion. I see no filling defects in the pulmonary arteries. There are no hilar masses. There is no mediastinal adenopathy. Thoracic aorta is intact. There is no aneurysm or dissection. The ascending aorta measures 3.1 cm. Liver spleen pancreas appear normal. Bile ducts are not dilated. Gallbladder is absent. Stomach is in tact. There is no adrenal mass. Kidneys show satisfactory contrast opacification. There is no hydronephrosi s. There is no retroperitoneal adenopathy. Abdominal aorta is atheromatous. Bladder distends smoothly . There is no inguinal hernia. There is no free fluid in the pelvis. Appendix is posterior and latera l and appears normal. There is no mesenteric edema. There is no ascites or free air. There is no bowel obstruction. Abdominal aorta appears intact. There is no aneurysm or dissection. There is arterial flow in the sup erior mesenteric artery and the celiac artery. There is arterial flow in both renal arteries. There i s bilateral arterial flow in the iliac and femoral arteries. I see no evidence of hemodynamic stenosi s. There is no evidence of arterial aneurysm or dissection. Thoracic and lumbar spine appear intact. There is no compression fracture. The ribs appear intact. Th e bony pelvis is intact. Hip joints appear intact. IMPRESSION: Negative CT angiogram of the chest abdomen pelvis. No evidence of arterial aneurysm or dissection. No evidence of hemodynamic stenosis. Mild atherosclerotic vascular disease.
[2019-10-20] MEDS ORDERED: NITROGLYCERIN SL TABS 0.4 MG TAB SUBLINGUAL PRN (21:08)
[2019-10-20] MEDS ORDERED: ALPRAZolam 0.25 MG TAB PO PRN (21:08)
[2019-10-21] MEDS: NITROGLYCERIN OINT 1 INCH/GM PACKET TOPICAL SCH ×2 (00:54→06:26)
[2019-10-21 06:31] LABS: Basophils % (A) 1 %; Eosinophils # (A) 0.2 k/uL (0-0.7); Eosinophils % (A) 4 %; HCT 43.8 % (39.0-53.0); HGB 14.2 gm/dL (13.0-17.5); Lymphocytes # (A) 1.6 k/uL (1.0-4.8); Lymphocytes % (A) 26 %; MCH 29.1 pg (25.0-35.0); MCHC 32.6 g/dL (31.0-37.0); MCV 89.4 fL (80.0-100.0); Mean Platelet Volume 7.2; Monocytes # (A) 0.4 k/uL (0-1.0); Monocytes % (A) 6 %; Neutrophils # (A) 3.7 k/uL (1.3-7.7); Neutrophils % (A) 61 %; Platelet Count 228 k/uL (150-450); RBC 4.89 m/uL (4.30-5.90)
[2019-10-21 06:42] LABS: African American GFR (CKD) >90 (>60 ml/min/1.73 sqM); Anion Gap 6 mmol/L; Blood Urea Nitrogen 19 mg/dL (9-20); Calcium 9.2 mg/dL (8.4-10.2); Carbon Dioxide 25 mmol/L (22-30); Chloride 107 mmol/L (98-107); Cholesterol 227 mg/dL (<200); Glucose 88 mg/dL (74-99); HDL Cholesterol 40 mg/dL (40-60); LDL Cholesterol,Calculated 157 mg/dL (0-99); Non-African American GFR(CKD) >90 (>60 ml/min/1.73 sqM); Potassium 4.3 mmol/L (3.5-5.1); Sodium 138 mmol/L (137-145); Triglycerides 151 mg/dL (<150)
[2019-10-21 07:55] LABS: Amphetamine Screen,Urine Not Detected (NotDetected); Barbiturate Screen,Urine Not Detected (NotDetected); Benzodiazepines Screen,Urine Detected (NotDetected); Cocaine Screen,Urine Not Detected (NotDetected); Methadone Screen, Urine Not Detected (NotDetected); Opiate Screen,Urine Not Detected (NotDetected); Oxycodone Screen, Urine Not Detected (NotDetected); Phencyclidine Screen,Urine Not Detected (NotDetected); Tricyclic Antidepressant,Urine Detected (NotDetected); Urn Cannabinoid Scrn Not Detected (NotDetected)
[2019-10-21 07:59] VITALS: BP 130/88; PULSE 90; RESP 16; TEMP 98.1
[2019-10-21] MEDS ORDERED: APIXABAN 5 MG TAB PO SCH (09:00)
[2019-10-21] MEDS ORDERED: ASPIRIN 325 MG TAB PO SCH (09:00)
[2019-10-21] MEDS ORDERED: ASPIRIN 81 MG PO SCH (09:00)
[2019-10-21] MEDS ORDERED: PANTOPRAZOLE 40 MG TABLET PO SCH (09:00)
--- NOTE | 2019-10-21 10:30 | P.CRDCN ---
History of Present Illness Consult date: 10/21/19 Reason for Consult (text): Chest pain History of present illness: HISTORY OF PRESENTING ILLNESS This is a pleasant 43-year-old male with history of prior DVT and PE diagnosed in March 2019 who presents secondary to chest pain. Patient states that over the last 1 week he has noted left-sided chest pain going up and his shoulder and down his arm. He does admit that one week ago he was helping his brother move and was doing strenuous activity. Since that time he has noted this left-sided chest pain. He has a history of DVT and bilateral PE diagnosed in March 2019. He was seen by Dr. aMrx and admits he was supposed to follow-up however never did. He had an echocardiogram performed at that time he had an ejection fraction of 50-55%, normal right ventricular size without significant pulmonary hypertension identified. He admits to some decrease in exercise tolerance since being hospitalized in March. He denies any consistent chest pain or pressure prior to this episode. He admits that his current chest pain is worsened with movements and deep inhalation. No association with exertion. He had workup in the emergency department including troponins which were negative 3, CT thorax which showed resolution of his PE. DIAGNOSTICS EKG reveals sinus tachycardia 107 bpm, nonspecific T-wave abnormalities. CTA thorax showed no acute processes, resolution of his PE Laboratory reviewed, : Negative 3, hemoglobin 14.2, white blood cell count 6.0, platelets 228, creatinine 0.96 Current cardiac medications include Eliquis 5 mg twice a day. REVIEW OF SYSTEMS At the time of my exam: CONSTITUTIONAL: Denies fever or chills. CARDIOVASCULAR: +chest pain, no shortness of breath, orthopnea, PND or palpitations, + decrease in exercise tolerance over the summer RESPIRATORY: Denies cough. GASTROINTESTINAL: Denies abdominal pain, diarrhea, constipation, nausea or vomiting. MUSCULOSKELETAL: Denies myalgias. NEUROLOGIC: Denies numbness, tingling or weakness. ENDOCRINE: Denies fatigue, weight change, polydipsia or polyurina. GENITOURINARY: Denies burning, hematuria or urgency with micturation. HEMATOLOGIC: Denies history of anemia or bleeding. PHYSICAL EXAMINATION Blood pressure 130/88 heart rate 90 afebrile and maintaining oxygen saturation on 2 L nasal cannula. CONSTITUTIONAL: No apparent distress. HEENT: Head is normocephalic. Pupils are equal, round. Sclerae anicteric. Mucous membranes of the mouth are moist. No JVD. No carotid bruit. CHEST EXAMINATION: Lungs are clear to auscultation. + Very reproducible chest pain of his left upper chest and going into his shoulder with palpation HEART EXAMINATION: Regular rate and rhythm. S1, S2 heard. No murmurs, gallops or rub. ABDOMEN: Soft, nontender. Positive bowel sounds. EXTREMITIES: 2+ peripheral pulses, no lower extremity edema and no calf tenderness. NEUROLOGIC EXAMINATION: Patient is awake, alert and oriented x3. ASSESSMENT 1. Very atypical, reproducible chest pain with troponins negative. Do not suspect cardiac in nature. Appears related to over strenuous activity of moving his brother one week ago. 2. Decrease in exercise tolerance over the last 6 months. Likely related to recent pulmonary embolism in March 2019. May consider outpatient workup with repeat echo however echocardiogram from March showed no significant pulmonary hypertension, normal ejection fraction 50-55%. 3. History of DVT, pulmonary embolism, resolved on most recent CAT scan PLAN Patient's chest pain is very reproducible and no further inpatient workup required. Troponins negative 3. Do not suspect cardiogenic in nature. Patient may be discharged with outpatient follow-up with Dr. Marx. May consider further workup for dyspnea on exertion likely related to recent pulmonary embolism. Patient being followed by timber selector for his pulmonary embolism however we will continue Eliquis given unprovoked DVT and PE. Past Medical History Past Medical History: Deep Vein Thrombosis (DVT), Hypertension Additional Past Medical History / Comment(s): hernia repair, 1998 , tonsillectom y, dvts polycythemia vera History of Any Multi-Drug Resistant Organisms: None Reported Past Surgical History: Cholecystectomy, Hernia Repair Additional Past Surgical History / Comment(s): LEFT INGUINAL HERNIA Past Anesthesia/Blood Transfusion Reactions: Motion Sickness Past Psychological History: No Psychological Hx Reported Smoking Status: Never smoker Past Alcohol Use History: Rare Past Drug Use History: None Reported - Past Family History Mother Family Medical History: No Reported History Medications and Allergies Home Medications Medication Instructions Recorded Confirmed Type Aspirin EC [Ecotrin Low Dose] 81 mg PO DAILY 04/10/19 10/20/19 History Apixaban [Eliquis] 5 mg PO BID 10/20/19 10/20/19 History Meloxicam [Mobic] 7.5 mg PO HS 10/20/19 10/20/19 History Omeprazole 20 mg PO DAILY 10/20/19 10/20/19 History Allergies Allergy/AdvReac Type Severity Reaction Status Date / Time Penicillins Allergy FAMILY Verified 10/20/19 21:30 HISTORY Physical Exam Vitals: Vital Signs Temp Pulse Pulse Resp BP BP Pulse Ox 10/21/19 07:57 98.1 F 90 16 130/88 97 10/21/19 03:00 97.7 F 83 18 117/75 98 10/20/19 22:15 97.9 F 82 18 122/84 98 10/20/19 20:47 96 18 137/92 97 10/20/19 19:55 27 H 10/20/19 19:50 90 19 133/94 95 10/20/19 19:23 98.4 F 110 H 22 121/101 98 Intake and Output 10/20/19 10/21/19 10/21/19 22:59 06:59 14:59 Intake Total 450 0 Balance 450 0 Intake: Oral 0 Blood Product 450 Other: Voiding Method Toilet Toilet Toilet Weight 113.398 kg Results 10/21/19 05:47 10/21/19 05:47 Cardiac Enzymes 10/20/19 10/20/19 10/20/19 Range/Units 19:34 19:34 23:02 AST 33 (17-59) U/L Troponin I <0.012 <0.012 (0.000-0.034) ng/mL 10/21/19 Range/Units 00:38 AST (17-59) U/L Troponin I <0.012 (0.000-0.034) ng/mL Coagulation 10/20/19 Range/Units 19:34 PT 10.2 (9.0-12.0) sec APTT 22.1 (22.0-30.0) sec Lipids 10/21/19 Range/Units 05:47 Triglycerides 151 H (<150) mg/dL Cholesterol 227 H (<200) mg/dL HDL Cholesterol 40 (40-60) mg/dL CBC 10/20/19 10/21/19 Range/Units 19:34 05:47 WBC 6.1 6.0 (3.8-10.6) k/uL RBC 5.26 4.89 (4.30-5.90) m/uL Hgb 15.7 14.2 (13.0-17.5) gm/dL Hct 45.7 43.8 (39.0-53.0) % Plt Count 254 228 (150-450) k/uL Comprehensive Metabolic Panel 10/20/19 10/21/19 Range/Units 19:34 05:47 Sodium 136 L 138 (137-145) mmol/L Potassium 4.8 4.3 (3.5-5.1) mmol/L Chloride 108 H 107 (98-107) mmol/L Carbon Dioxide 20 L 25 (22-30) mmol/L BUN 18 19 (9-20) mg/dL Creatinine 0.94 0.96 (0.66-1.25) mg/dL Glucose 109 H 88 (74-99) mg/dL Calcium 9.7 9.2 (8.4-10.2) mg/dL AST 33 (17-59) U/L ALT 24 (4-49) U/L Alkaline Phosphatase 76 (38-126) U/L Total Protein 7.2 (6.3-8.2) g/dL Albumin 4.3 (3.5-5.0) g/dL Current Medications Generic Name Dose Route Start Last Admin Trade Name Freq PRN Reason Stop Dose Admin Alprazolam 0.25 mg 10/20/19 21:08 Xanax PO QID PRN Anxiety Apixaban 5 mg 10/21/19 09:00 10/21/19 09:37 Eliquis PO 5 mg BID [facility] Administration Aspirin 325 mg 10/21/19 09:00 Aspirin PO DAILY [facility] Aspirin 81 mg 10/21/19 09:00 10/21/19 09:37 Aspirin PO 81 mg DAILY [facility] Administration Nitroglycerin 0.4 mg 10/20/19 21:08 Nitrostat SUBLINGUAL Q5M PRN Chest Pain Nitroglycerin 1 inch 10/21/19 00:00 10/21/19 06:26 Nitro-Bid Oint TOPICAL Not Given Q6HR [facility] Pantoprazole Sodium 40 mg 10/21/19 09:00 10/21/19 09:37 Protonix PO 40 mg DAILY [facility] Administration Intake and Output 10/20/19 10/21/19 10/21/19 22:59 06:59 14:59 Intake Total 450 0 Balance 450 0 Intake: Oral 0 Blood Product 450 Other: Voiding Method Toilet Toilet Toilet Weight 113.398 kg 10/21/19 05:47 10/21/19 05:47
--- NOTE | 2019-10-24 21:43 | P.HPIM ---
History of Present Illness H&P Date: 10/21/19 Chief Complaint: chest pain Chon Marin is a 43 yo M with PMH DVT and PE diagnosed 03/2019 who presented to the ED with chest pain. Patient notes that one week ago he helped his brother move and since then has noticed intermittent L sided chest pain. He feels this is worse with arm movements and no change with exercise. Denies any associated shortness of breath, diaphoresis, nausea, or radiation. He has not followed up with cardiology after his hospitalization for the PE, but does feel his overall exercise tolerance is lower and gets easily winded. On presentation vitals and labs stable, trop negative, CTA with resolution of his PE. Review of Systems All systems: negative Constitutional: Denies chills, Denies fever Eyes: denies blurred vision, denies pain Ears, nose, mouth and throat: Denies headache, Denies sore throat Cardiovascular: Reports chest pain, Reports decreased exercise tolerance, Denies dyspnea on exertion, Denies shortness of breath Respiratory: Denies cough Gastrointestinal: Denies abdominal pain, Denies diarrhea, Denies nausea, Denies vomiting Musculoskeletal: Denies myalgias Integumentary: Denies pruritus, Denies rash Neurological: Denies numbness, Denies weakness Psychiatric: Denies anxiety, Denies depression Endocrine: Denies fatigue, Denies weight change Past Medical History Past Medical History: Deep Vein Thrombosis (DVT), Hypertension Additional Past Medical History / Comment(s): hernia repair, 1998 , tonsillectomy, dvts polycythemia vera History of Any Multi-Drug Resistant Organisms: None Reported Past Surgical History: Cholecystectomy, Hernia Repair Additional Past Surgical History / Comment(s): LEFT INGUINAL HERNIA Past Anesthesia/Blood Transfusion Reactions: Motion Sickness Past Psychological History: No Psychological Hx Reported Smoking Status: Never smoker Past Alcohol Use History: Rare Past Drug Use History: None Reported - Past Family History Mother Family Medical History: No Reported History Medications and Allergies Home Medications Medication Instructions Recorded Confirmed Type Aspirin EC [Ecotrin Low Dose] 81 mg PO DAILY 04/10/19 10/20/19 History Apixaban [Eliquis] 5 mg PO BID 10/20/19 10/20/19 History Meloxicam [Mobic] 7.5 mg PO HS 10/20/19 10/20/19 History Omeprazole 20 mg PO DAILY 10/20/19 10/20/19 History Allergies Allergy/AdvReac Type Severity Reaction Status Date / Time Penicillins Allergy FAMILY Verified 10/20/19 21:30 HISTORY Physical Exam General: well nourished, well developed, NAD. Vitals reviewed Eyes: PERRL, EOMI, conjunctiva normal HENT: normocephalic, mucus membranes moist Neck: supple, no JVD Lungs: normal respiratory effort, no wheezes or rales. Tenderness to palpation L lateral chest wall CV: Regular rate and rhythm, no murmur. Peripheral pulses 2+ Abdomen: soft, nondistended, no organomegaly Lymph: no cervical or axillary LAD Skin: warm and dry. Neuro: A&Ox3, normal mood and affect Results CBC & Chem 7: 10/21/19 05:47 10/21/19 05:47 Assessment and Plan (1) Chest pain Status: Acute Code(s): R07.9 - CHEST PAIN, UNSPECIFIED SNOMED Code(s): 33196399 (2) Right leg DVT Status: Acute Code(s): I82.401 - ACUTE EMBOLISM AND THOMBOS UNSP DEEP VEINS OF R LOW EXTREM SNOMED Code(s): 246828396 Plan: 1. chest pain. ACS ruled out. Cardiology consult for further eval. Continue ASA 2. Hx DVT and PE. Continue eliquis
--- NOTE | 2019-10-24 21:45 | P.DS ---
Providers Date of admission: 10/20/19 21:08 Expected date of discharge: 10/21/19 Attending physician: Min Linton MD Consults: 10/20/19 21:08 Consult Physician Urgent Consulting Provider: Stephanie Ledezma Consult Reason/Comments: cp Do you want consulting provider notified?: Yes Primary care physician: Mary Burdick - Discharge Diagnosis(es) (1) Chest pain Status: Acute (2) Right leg DVT Status: Acute Hospital Course: Chon Marin is a 43 yo M with H DVT and PE diagnosed 03/2019 who presented to the ED with chest pain. Patient notes that one week ago he helped his brother move and since then has noticed intermittent L sided chest pain. He feels this is worse with arm movements and no change with exercise. Denies any associated shortness of breath, diaphoresis, nausea, or radiation. He has not followed up with cardiology after his hospitalization for the PE, but does feel his overall exercise tolerance is lower and gets easily winded. On presentation vitals and labs stable, trop negative, CTA with resolution of his PE. Pt was admitted to observation and cardiology consulted. Pt's pain was reproducible with palpation. He was diagnosed with costochondritis and recommended to use heat, stretches. He will follow up with Cardiology and PCP on discharge Plan - Discharge Summary Discharge Rx Participant: Yes New Discharge Prescriptions: Continue Aspirin EC [Ecotrin Low Dose] 81 mg PO DAILY Meloxicam [Mobic] 7.5 mg PO HS Apixaban [Eliquis] 5 mg PO BID Omeprazole 20 mg PO DAILY Discharge Medication List Aspirin EC [Ecotrin Low Dose] 81 mg PO DAILY 04/10/19 [History] Apixaban [Eliquis] 5 mg PO BID 10/20/19 [History] Meloxicam [Mobic] 7.5 mg PO HS 10/20/19 [History] Omeprazole 20 mg PO DAILY 10/20/19 [History] Follow up Appointment(s)/Referral(s): Brenden Marx MD [STAFF PHYSICIAN] - 11/03/19 4:30 pm Mary Burdick DO [Primary Care Provider] - 10/28/19 2:00 pm (Appointment is in the [facility] office with Dr Linton.) Patient Instructions/Handouts: Chest Pain (GEN) Discharge Disposition: HOME SELF-CARE
== END 2019-10-21 13:18 | disposition home or self-care (01) ==
LOC: EC 19:17 → SUPCPDRO 19:17 → 3NCARDOBS 21:08
PROVIDERS: ADMIT Family Medicine; ATTEND Family Medicine
DX: M94.0 Chondrocostal junction syndrome [Tietze] (principal); I82.401 Acute embolism and thrombosis of unspecified deep veins of right lower extremity; R00.0 Tachycardia, unspecified; R94.31 Abnormal electrocardiogram [ECG] [EKG]; I10 Essential (primary) hypertension; D45 Polycythemia vera; Z79.82 Long term (current) use of aspirin; Z79.01 Long term (current) use of anticoagulants; Z79.1 Long term (current) use of non-steroidal anti-inflammatories (NSAID); Z88.0 Allergy status to penicillin; Z79.899 Other long term (current) drug therapy; Z86.718 Personal history of other venous thrombosis and embolism; Z87.19 Personal history of other diseases of the digestive system; Z98.890 Other specified postprocedural states; Z90.89 Acquired absence of other organs; Z90.49 Acquired absence of other specified parts of digestive tract; Z87.898 Personal history of other specified conditions; Z86.711 Personal history of pulmonary embolism
CPT/HCPCS: 93005 ×2; 96374; 99285 ×2; 36415; 80061; 80053; 80048; 82150; 83690; 83735; 84484 ×2; 85025 ×2; 85610; 85730; 80306; 80320; 71275; 74174; G0378 ×2; J2060; Q9967

== ENCOUNTER → 2019-12-26 | Day surgery (SDC) | payer OTHER, BC ==
[2019-12-24 11:41] VITALS: BMI 33.4
[~2019-12-26] MED LIST: LACTATED RINGERS 1,000 ML IV SCH; LIDOCAINE 1% (10MG/ML) FOR IV START INTRADERMA ONE; LIDOCAINE 1% INJ 10MG/ML (20 ML MDV) ONE; PROPOFOL 10 MG/ML 20 ML VIAL IV ONE; fentaNYL (PF) 50 MCG/ML 2 ML AMP ONE
[2019-12-26 11:39] VITALS: TEMP 97.2
--- NOTE | 2019-12-26 12:43 | P.GSHP ---
History of Present Illness H&P Date: 12/26/19 Chief Complaint: GI bleed, epigastric pain 4-year-old male who presents today for EGD colonoscopy. He's had issues with GI bleed and epigastric pain. Past Medical History Past Medical History: Deep Vein Thrombosis (DVT), GI Bleed, Hypertension, Sleep Apnea/CPAP/BIPAP Additional Past Medical History / Comment(s): dvts polycythemia vera. severe pain RUQ abdomen History of Any Multi-Drug Resistant Organisms: None Reported Past Surgical History: Cholecystectomy, Hernia Repair, Tonsillectomy Additional Past Surgical History / Comment(s): LEFT INGUINAL HERNIA Past Anesthesia/Blood Transfusion Reactions: Motion Sickness Smoking Status: Never smoker - Past Family History Mother Family Medical History: No Reported History Medications and Allergies Home Medications Medication Instructions Recorded Confirmed Type Aspirin EC [Ecotrin Low Dose] 81 mg PO DAILY 04/10/19 12/26/19 History Apixaban [Eliquis] 5 mg PO BID 10/20/19 12/26/19 History Meloxicam [Mobic] 7.5 mg PO HS 10/20/19 12/26/19 History Omeprazole 20 mg PO DAILY 10/20/19 12/26/19 History Gabapentin [Neurontin] 100 mg PO DAILY PRN 12/24/19 12/26/19 History Allergies Allergy/AdvReac Type Severity Reaction Status Date / Time Penicillins Allergy FAMILY Verified 12/24/19 11:34 HISTORY Surgical - Exam Vital Signs Temp Pulse Resp BP Pulse Ox 97.2 F L 102 H 16 163/108 97 12/26/19 11:34 12/26/19 11:34 12/26/19 11:34 12/26/19 11:34 12/26/19 11:34 - General well developed, well nourished - Eyes PERRL - ENT normal pinna - Neck no masses - Respiratory normal expansion - Cardiovascular Rhythm: regular - Abdomen Abdomen: soft, non tender Assessment and Plan Assessment: GI bleed, epigastric pain. We'll perform EGD and colonoscopy.
--- NOTE | 2019-12-26 13:04 | P.OP ---
Date of Procedure: 12/26/19 Preoperative Diagnosis: GI bleed, epigastric pain Postoperative Diagnosis: Antral gastritis Normal colon Procedure(s) Performed: EGD Colonoscopy Anesthesia: MAC Surgeon: Jacobo Ordonez Pathology: other (Antrum) Condition: stable Disposition: PACU Description of Procedure: Nor PROCEDURE: The patient was placed on the endoscopy table in the lateral position. Digital rectal examination was performed which revealed no abnormalities. The prostate was symmetrical without nodules. Flexible colonoscope was then placed in the patient's anus and passed throughout the entire colon. The ileocecal valve was visualized. The cecum, ascending, transverse, descending and sigmoid colon were normal. The rectum was normal as well. There were no masses, polyps or diverticula noted in the entire colon. Next, the gastroscope was placed patient's oropharynx and passed into the esophagus and stomach. Scope was then placed through the pylorus. The first and second portion of the duodenum appeared normal. Scope was then brought back and the antrum this was mildly inflamed. A biopsies performed. Scope was then retroflexed and remainder of the stomach appeared normal. The GE junction was at 40 cm the distal esophagus appeared normal. The proximal esophagus appeared normal. Scope withdrawn for patient.
[2019-12-26 13:18] VITALS: BP 146/87; PULSE 80; RESP 17
== END ==
LOC: ORWHC2ENDO 11:09
PROVIDERS: ATTEND Surgery
DX: K92.1 Melena (principal); K29.51 Unspecified chronic gastritis with bleeding; I10 Essential (primary) hypertension; G47.30 Sleep apnea, unspecified; G47.33 Obstructive sleep apnea (adult) (pediatric); D45 Polycythemia vera; K21.9 Gastro-esophageal reflux disease without esophagitis; F17.200 Nicotine dependence, unspecified, uncomplicated; Z86.718 Personal history of other venous thrombosis and embolism; Z87.19 Personal history of other diseases of the digestive system; Z90.49 Acquired absence of other specified parts of digestive tract; Z98.890 Other specified postprocedural states; Z90.89 Acquired absence of other organs; Z87.898 Personal history of other specified conditions; Z79.82 Long term (current) use of aspirin; Z79.01 Long term (current) use of anticoagulants; Z79.1 Long term (current) use of non-steroidal anti-inflammatories (NSAID); Z79.899 Other long term (current) drug therapy; Z88.0 Allergy status to penicillin; Z86.711 Personal history of pulmonary embolism
CPT/HCPCS: 88305; 45378; 43239; J2001; J3010; J2704

== ENCOUNTER 2020-10-08 06:14 | Day surgery (SDC) | payer BC ==
[2020-10-05 15:19] VITALS: BMI 32.6
[2020-10-08 06:38] VITALS: TEMP 98.8
[2020-10-08] MEDS ORDERED: SODIUM CHLORIDE 0.9% 500 ML 500 ML IV ONE (06:38)
[2020-10-08 06:51] LABS: INR 1.7 (<1.2)
[2020-10-08] MEDS ORDERED: fentaNYL (PF) 50 MCG/ML 2 ML AMP ONE (07:17)
[2020-10-08] MEDS ORDERED: BENZOCAINE SPRAY 1 CAN TOPICAL ONE (07:44)
[2020-10-08] MEDS ORDERED: fentaNYL (PF) 50 MCG/ML 2 ML AMP IV ONE (07:59)
[2020-10-08] MEDS ORDERED: MIDAZOLAM 2 MG/2 ML VIAL IV ONE ×3 (08:00→08:07)
[2020-10-08 08:26] VITALS: RESP 14
--- NOTE | 2020-10-08 09:43 | ECHOT ---
TRANSESOPHAGEAL ECHOCARDIOGRAM DATE OF STUDY: 10/08/2020. PERFORMING PHYSICIAN: Brenden Marx M.D. INDICATION: History of TIA/stroke. COMPLICATIONS: None. LEVEL OF SEDATION: Moderate, with a sedation length of 15 minutes. PROCEDURE DESCRIPTION: After obtaining informed consent, the patient was brought to the transesophageal echocardiogram suite. The pulse oximetry and heart rate monitors were attached to the patient. Subsequently the transesophageal echocardiogram probe was advanced through the bite guard to the mid esophagus, where 2D echocardiogram images as well as color Doppler and pulse Doppler and continuous wave Doppler applied. Also we did contrast study. The procedure was completed without any complication. FINDINGS: The left ventricular dimension and systolic function appeared to be within normal limits. The ejection fraction appeared to be in the range of 50% to 55%. The right ventricle appeared to be of normal size and function. The left atrium appeared to be within normal limits for dimension. The right atrium appeared to be within normal limits for dimension. The interatrial septum appeared to be intact. Left atrial appendage was not visualized. The aortic valve appeared to be normal without stenosis or regurgitation. The mitral valve seemed to be normal as well, with mild MR. CONCLUSION: 1. No evidence of cardiac source of embolization. 2. Normal cardiac chamber sizes. 3. Normal intracardiac valves. 4. Normal left ventricular dimension and systolic function. 5. Normal right ventricular dimension and systolic function. 6. No evidence of pericardial effusion. MMODL / IJN: [id number] /
[2020-10-08 09:57] VITALS: BP 141/82; PULSE 82
== END 2020-10-08 09:37 | disposition home or self-care (01) ==
LOC: CATHCVL 06:14
PROVIDERS: ATTEND Internal Medicine Interventional Cardiology
DX: Z86.73 Personal history of transient ischemic attack (TIA), and cerebral infarction without residual deficits (principal)
CPT/HCPCS: 93312; 93325; 85610; J2250; J3010

== ENCOUNTER → 2021-08-09 | Outpatient (CLI) | payer BC ==
--- NOTE | 2021-08-09 09:39 | CT ---
EXAMINATION TYPE: CT abdomen w con DATE OF EXAM: 08/09/2021 COMPARISON: CT dated 10/20/2019 HISTORY: Localized swelling/mass right side back CT DLP: 1002 mGycm Automated exposure control for dose reduction was used. TECHNIQUE: Helical acquisition of images was performed from the lung bases through the top of iliac crest to include entire abdomen. CONTRAST: Performed with Oral Contrast and with IV Contrast, patient injected with 100 mL of Isovue 300. FINDINGS: LUNG BASES: No significant abnormality is appreciated. LIVER/GB: Millimetric segment 4 cyst, otherwise no definite hepatic focal lesion. Previous cholecyste ctomy. PANCREAS: No significant abnormality is seen. SPLEEN: No significant abnormality is seen. ADRENALS: No significant abnormality is seen. KIDNEYS: No significant abnormality is seen. BOWEL: No significant abnormality is seen. LYMPH NODES: No pathologically enlarged abdominal lymph nodes. OSSEOUS STRUCTURES: No aggressive bone lesion. FREE AIR: No free air is visualized. OTHER: Arterial atherosclerotic calcification. Infrarenal abdominal aortic ectasia measuring up to 2. 3 cm. No abdominal free fluid. Small fat-containing umbilical hernia. A marker was placed at the area of interest to the right side of the midline of the back. At that location, there is subtle subcutan eous fat stranding without measurable mass or lesion. Unremarkable underlying back muscles. IMPRESSION: No sizable mass or definite lesion seen at the area of interest. Only subtle subcutaneous fat strandi ng and linear density are noted, nonspecific. Recommend clinical correlation and clinical follow-up. Other incidental findings as described above.
== END | disposition home or self-care (01) ==
LOC: RADCTMAIN 08:12
PROVIDERS: ATTEND Family Medicine
DX: R22.2 Localized swelling, mass and lump, trunk (principal)
CPT/HCPCS: 74160; Q9967

== ENCOUNTER 2024-07-07 14:46 | Inpatient (IN) | payer BC ==
[2024-07-07 15:26] LABS: Glucose,Whole Blood 94 mg/dL (70-110)
[2024-07-07] MEDS: ONDANSETRON 4 MG/2 ML VIAL IVP STA (15:26)
--- NOTE | 2024-07-07 15:28 | ED ---
General Adult HPI - General Chief complaint: Neuro Symptoms/Deficit Stated complaint: Facial numbness,Dizziness,AMS Time Seen by Provider: 07/07/24 15:10 Source: patient, family, RN notes reviewed, old records reviewed Mode of arrival: ambulatory Limitations: no limitations - History of Present Illness Initial comments: Patient is a 48-year-old male who presents emergency department for neurosymptoms. States he had sudden onset of a headache at approximately 2 PM this afternoon. Called family who came and brought him to the hospital. Has a history of being on blood thinners for prior PEs and DVTs. Also has a history of prior stroke/TIA with no residual symptoms. States he is compliant with his warfarin. Denies any trauma or falls. Endorses a pain/pressure sensation over the posterior aspect of his head. States he has generalized weakness throughout his body at this time. Also is complaining of right sided numbness. Presents for further evaluation at this time. - Related Data Home Medications Medication Instructions Recorded Confirmed Warfarin [Coumadin] 5 mg PO SUMOTUTHFRSA 10/05/20 07/07/24 Amitriptyline HCl [Elavil] 50 mg PO DAILY 07/07/24 07/07/24 Warfarin [Coumadin] 2.5 mg PO WE 07/07/24 07/07/24 lisinopriL 40 mg PO DAILY 07/07/24 07/07/24 Allergies Allergy/AdvReac Type Severity Reaction Status Date / Time Penicillins Allergy FAMILY Verified 07/07/24 17:03 HISTORY Review of Systems ROS Statement: Those systems with pertinent positive or pertinent negative responses have been documented in the HPI. Review of Systems: CONST: Denies fever EYES: Denies blurry vision ENT: Denies nasal congestion C/V: Denies Chest pain RESP: Denies shortness of breath GI: Denies abdominal pain : Denies dysuria SKIN: Denies rash. MSK: Denies joint pain. NEURO: Endorses generalized weakness. Endorses headache ROS Other: All systems not noted in ROS Statement are negative. Past Medical History Past Medical History: CVA/TIA, Deep Vein Thrombosis (DVT), GI Bleed, Hypertension, Pulmonary Embolus (PE), Sleep Apnea/CPAP/BIPAP Additional Past Medical History / Comment(s): DVT RIGHT LEG , PE, polycythemia vera , STROKE MAY 31 2020 History of Any Multi-Drug Resistant Organisms: None Reported Past Surgical History: Cholecystectomy, Hernia Repair, Tonsillectomy Additional Past Surgical History / Comment(s): LEFT INGUINAL HERNIA, Past Anesthesia/Blood Transfusion Reactions: Motion Sickness Past Psychological History: No Psychological Hx Reported Smoking Status: Former smoker Past Alcohol Use History: None Reported Past Drug Use History: None Reported - Past Family History Mother Family Medical History: Deep Vein Thrombosis (DVT) Additional Family Medical History / Comment(s): DVT-LEG General Exam - General Exam Comments Initial Comments: General: Appears in no acute distress. HEAD: Normal with no signs of head trauma. Negative Castillo sign. Negative raccoon eyes. EYES: PERRLA, EOMI, conjunctiva normal, no discharge. Pupils are 3 mm equal bilaterally. ENT: Hearing grossly intact, normal oropharynx. RESPIRATORY: Clear breath sounds bilaterally. No wheezes, rales, or rhonchi. C/V: Regular rate and rhythm. S1 and S2 auscultated, no edema, peripheral pulses 2+ and intact throughout ABD: Abd is soft, nontender, nondistended EXT: Normal range of motion, no obvious deformity SKIN: No rashes or lesions observed on exposed skin. NEURO: Alert and oriented x 4. NIH is at least 1. Patient is complaining of generalized weakness and difficult to obtain further exam. Patient received 1 point for right sided numbness of the right face and right arm. Has chronic right leg numbness that is unchanged from baseline. Patient has global extremity weakness throughout that it seems symmetrical and not unilateral. States he is does seem somewhat dizzy however with cerebellar function with finger-nose testing, while he is slow to do it, can adequately complete the testing. No obvious focal unilateral deficits other than the numbness of the right face and the right arm. Limitations: no limitations Course Vital Signs 07/07/24 07/07/24 07/07/24 14:57 15:45 16:45 Temperature 97.9 F Pulse Rate 112 H 90 88 Respiratory 18 20 18 Rate Blood Pressure 162/98 125/90 138/88 O2 Sat by Pulse 97 98 95 Oximetry 07/07/24 07/07/24 17:00 18:19 Temperature Pulse Rate 84 89 Respiratory 18 20 Rate Blood Pressure 140/95 119/82 O2 Sat by Pulse 95 97 Oximetry Medical Decision Making - Medical Decision Making Was pt. sent in by a medical professional or institution (Dr., PA, SENIOR POLICY ADVISOR, urgent care, hospital, or senior living...) When possible be specific @ -No Did you speak to anyone other than the patient for history (EMS, parent, family, police, friend...)? What history was obtained from this source @ -Spoke with patient's family member who assist with past medical history including the fact that patient is on Coumadin and what his normal baseline is. Did you review nursing and triage notes (agree or disagree)? Why? @ -I reviewed and agree with nursing and triage notes Were old charts reviewed (outside hosp., previous admission, EMS record, old EKG, old radiological studies, urgent care reports/EKG's, senior living records)? Report findings @ -Compared today's EKG with EKG from September 2019 with no obvious significant acute change. Differential Diagnosis (chest pain, altered mental status, abdominal pain women, abdominal pain men, vaginal bleeding, weakness, fever, dyspnea, syncope, headache, dizziness, GI bleed, back pain, seizure, CVA, palpatations, mental health, musculoskeletal)? @ -Differential CVA Ischemic stroke, hemorrhagic stroke, brain tumor, atypical migraine, Wernicke's encephalopathy, seizure, multiple sclerosis, meningitis, encephalitis, hypoglycemia, Guillain-[place], electrolytes disturbance, myasthenia gravis.... This is not meant to be an all-inclusive list EKG interpreted by me (3pts min.). @ -As above X-rays interpreted by me (1pt min.). @ -Chest x-ray reveals no obvious acute cardiopulmonary process. CT interpreted by me (1pt min.). @ -CT brain shows no obvious acute intracranial process. Patient does have encephalomalacia in the right cerebellum from prior injury. CT angiogram of the head and neck reveals no evidence of acute large vessel occlusion. Patient has a dominant patent left vertebral artery with hypoplastic right vertebral artery. U/S interpreted by me (1pt. min.). @ -None done What testing was considered but not performed or refused? (CT, X-rays, U/S, labs)? Why? @ -None What meds were considered but not given or refused? Why? @ -Considered tenecteplase however with patient's only significant unilateral deficit being numbness with an NIH of 1, discussed with Dr. Hargrove who agrees that risks outweigh the benefits and patient should not receive tenecteplase as he is a poor candidate. We did discuss at length his generalized weakness that is approximately 4 out of 5 strength in every extremity and he states that with the absence of unilateral findings, he agrees that patient is a poor tenecteplase candidate and he would not recommend administering tenecteplase. Did you discuss the management of the patient with other professionals (professionals i.e. Dr., PA, SENIOR POLICY ADVISOR, lab, RT, psych nurse, social media marketer, branch operations manager, teacher, space operations officer, caser in)? Give summary @ -Code thrombolytic was activated as last known well was 1400, approximately 1 hours and 15 minutes prior to me evaluating the patient. He does fall within the window. I spoke with the neurocritical care physician, Dr. Hargrove. We discussed at length that the patient has no focal unilateral deficits other than the decreased sensation to light touch over the right face and the right arm. Patient has somewhat global weakness of the bilateral upper extremities as well as bilateral lower extremities which is symmetrical on exam. He agrees that with the absence of obvious other focal unilateral neurological deficits on exam other than the decreased sensation to light touch, patient is not a tenecteplase candidate. Risks outweigh the benefits of providing tenecteplase. Was in agreement with imaging and workup. Updated the neurocritical care physician Dr. 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 Otherwise requested patient be admitted to our facility, managed medically with aspirin. Will hold patient's Coumadin. Recommended MRI and neurology evaluation. Discussed with neurology on-call, Dr. Vargas who was in agreement the plan. Discussed with the admitting provider, GERSON Lopez of [facility] who accepted the admission. Was smoking cessation discussed for >3mins.? @ -No Was critical care preformed (if so, how long)? @ -Yes, 33 minutes Were there social determinants of health that impacted care today? How? (Homelessness, low income, unemployed, alcoholism, drug addiction, transportation, low edu. Level, literacy, decrease access to med. care, fpc, r ehab)? @ -No Was there de-escalation of care discussed even if they declined (Discuss DNR or withdrawal of care, Hospice)? DNR status @ -No What co-morbidities impacted this encounter? (DM, HTN, Smoking, COPD, CAD, Cancer, CVA, ARF, Chemo, Hep., AIDS, mental health diagnosis, sleep apnea, morbid obesity)? @ -On Coumadin. History of TIA Was patient admitted / discharged? Hospital course, mention meds given and route, prescriptions, significant lab abnormalities, going to OR and other pertinent info. @ -Based on the patient's presentation and physical exam, presents with sudden onset headache with generalized weakness as well as decree sensation of light touch over the right face and right arm which is new. Chronically sick crease sensation to light touch over the right lower extremity. Symptoms began at 1400 which is an hour and 15 minutes prior to my evaluation of the patient. Patient was made a code thrombolytic because he falls within this window. Concern for strokelike symptoms. NIH of 1 for unilateral focal deficits. Otherwise global weakness. I spoke with the neurocritical care physician, Dr. Hargrove. We discussed at length that the patient has no focal unilateral deficits other than the decreased sensation to light touch over the right face and the right arm. P atient has somewhat global weakness of the bilateral upper extremities as well as bilateral lower extremities which is symmetrical on exam. He agrees that with the absence of obvious other focal unilateral neurological deficits on exam other than the decreased sensation to light touch, patient is not a tenecteplase candidate. Risks outweigh the benefits of providing tenecteplase. Was in agreement with imaging and workup. Patient's laboratory studies returned within acceptable limits. INR is therapeutic at 2.5. Chest x-ray unremarkable. CT imaging negative for any obvious acute process. Patient has what is likely congenital findings on CT angiogram. I updated the patient. On reevaluation, patient is still having identical symptoms with no acute change in status. NIH remains 1 for sensory deficits of the right face and right arm with a general weakness. Patient will be administered migraine cocktail. Updated the neurocritical care physician Dr. 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 Otherwise requested patient be admitted to our facility, managed medically with aspirin. Will hold patient's Coumadin. Recommended MRI and neurology evaluation. Discussed with neurology on-call, Dr. Vargas who was in agreement the plan. Discussed with the admitting provider, GERSON Lopez of [facility] who accepted the admission. Undiagnosed new problem with uncertain prognosis? @ -No Drug Therapy requiring intensive monitoring for toxicity (Heparin, Nitro, Insulin, Cardizem)? @ -No Were any procedures done? @ -No Diagnosis/symptom? @ -CVA, migraine Acute, or Chronic, or Acute on Chronic? @ -Acute Uncomplicated (without systemic symptoms) or Complicated (systemic symptoms)? @ -Complicated Side effects of treatment? @ -None Exacerbation, Progression, or Severe Exacerbation] @ -No Poses a threat to life or bodily function? @ -Yes - Lab Data Result diagrams: 07/07/24 15:22 07/07/24 15: Lab Results 07/07/24 07/07/24 07/07/24 Range/Units : 15: 15:22 WBC 6.66 (4.50-10.00) 10*3/uL RBC 4.69 (4.40-5.60) 10*6/uL Hgb 14.8 (13.0-17.0) g/dL Hct 42.1 (39.6-50.0) % MCV 89.8 (80.0-97.0) fL MCH 31.6 (27.0-32.0) pg MCHC 35.2 (32.0-37.0) g/dL Plt Count 297 (140-440) 10*3/uL MPV 8.8 L (9.5-12.2) fL Immature Gran % (Auto) 0.3 % Neutrophils % 65.2 % Lymphocytes % 25.1 % Monocytes % 6.8 % Eosinophils % 2.1 % Basophils % 0.5 % Immature Gran # 0.02 (0.00-0.04) 10*3/uL Neutrophils # 4.35 (1.80-7.70) 10*3/uL Lymphocytes # 1.67 (0.90-5.00) 10*3/uL Monocytes # 0.45 (0.20-1.00) 10*3/uL Eosinophils # 0.14 (0.04-0.35) 10*3/uL Basophils # 0.03 (0.00-0.10) 10*3/uL PT 25.2 H (10.0-12.5) sec INR 2.5 H (<1.2) APTT 28.6 (22.0-30.0) sec Sodium (137-145) mmol/L Potassium (3.5-5.1) mmol/L Chloride (98-107) mmol/L Carbon Dioxide (22-30) mmol/L Anion Gap mmol/L BUN (9-20) mg/dL Creatinine (0.66-1.25) mg/dL Est GFR (CKD-EPI)AfAm (>60 ml/min/1.73 sqM) Est GFR (CKD-EPI)NonAf (>60 ml/min/1.73 sqM) Glucose (74-99) mg/dL POC Glucose (mg/dL) 94 (70-110) mg/dL POC Glu Manufacturing Engineering Professor ID Steve Playcie Calcium (8.4-10.2) mg/dL Total Bilirubin (0.2-1.3) mg/dL AST (17-59) U/L ALT (4-49) U/L Alkaline Phosphatase (38-126) U/L Creatine Kinase (55-170) U/L Total Protein (6.3-8.2) g/dL Albumin (3.5-5.0) g/dL 07/07/24 Range/Units 15:22 WBC (4.50-10.00) 10*3/uL RBC (4.40-5.60) 10*6/uL Hgb (13.0-17.0) g/dL Hct (39.6-50.0) % MCV (80.0-97.0) fL MCH (27.0-32.0) pg MCHC (32.0-37.0) g/dL Plt Count (140-440) 10*3/uL MPV (9.5-12.2) fL Immature Gran % (Auto) % Neutrophils % % Lymphocytes % % Monocytes % % Eosinophils % % Basophils % % Immature Gran # (0.00-0.04) 10*3/uL Neutrophils # (1.80-7.70) 10*3/uL Lymphocytes # (0.90-5.00) 10*3/uL Monocytes # (0.20-1.00) 10*3/uL Eosinophils # (0.04-0.35) 10*3/uL Basophils # (0.00-0.10) 10*3/uL PT (10.0-12.5) sec INR (<1.2) APTT (22.0-30.0) sec Sodium 142 (137-145) mmol/L Potassium 3.4 L (3.5-5.1) mmol/L Chloride 107 (98-107) mmol/L Carbon Dioxide 26 (22-30) mmol/L Anion Gap 9 mmol/L BUN 11 (9-20) mg/dL Creatinine 0.99 (0.66-1.25) mg/dL Est GFR (CKD-EPI)AfAm >90 (>60 ml/min/1.73 sqM) Est GFR (CKD-EPI)NonAf 88 (>60 ml/min/1.73 sqM) Glucose 84 (74-99) mg/dL POC Glucose (mg/dL) (70-110) mg/dL POC Glu Manufacturing Engineering Professor ID Calcium 9.9 (8.4-10.2) mg/dL Total Bilirubin 0.8 (0.2-1.3) mg/dL AST 21 (17-59) U/L ALT 24 (4-49) U/L Alkaline Phosphatase 51 (38-126) U/L Creatine Kinase 124 (55-170) U/L Total Protein 7.6 (6.3-8.2) g/dL Albumin 4.6 (3.5-5.0) g/dL - EKG Data -: EKG Interpreted by Me EKG Comments: 12-lead Electrocardiogram Interpretation Note EKG was reviewed and interpreted by myself. 12-lead ECG performed at 1514 is interpreted by me as revealing normal sinus rhythm at a rate of 99 beats per minute. Lewis is normal. W[place] interval is 164 ms, QRS duration is 104 ms, QTc is 411 ms.. There were no ST or T wave abnormalities to suggest myocardial ischemia or injury. R wave progression across the precordium was satisfactory. By my interpretation this EKG is non-diagnostic for acute ischemia. Critical Care Time Critical Care Time: Yes Total Critical Care Time: 33 Disposition Clinical Impression: CVA (cerebral vascular accident), Migraine Disposition: ADMITTED IP TO THIS HOSP Condition: Stable Time of Disposition: 17:12
[2024-07-07 15:45] LABS: Basophils # (A) 0.03 10*3/uL (0.00-0.10); Basophils % (A) 0.5 %; Eosinophils # (A) 0.14 10*3/uL (0.04-0.35); Eosinophils % (A) 2.1 %; HCT 42.1 % (39.6-50.0); HGB 14.8 g/dL (13.0-17.0); Lymphocytes # (A) 1.67 10*3/uL (0.90-5.00); Lymphocytes % (A) 25.1 %; MCH 31.6 pg (27.0-32.0); MCHC 35.2 g/dL (32.0-37.0); MCV 89.8 fL (80.0-97.0); Mean Platelet Volume 8.8 fL (9.5-12.2); Monocytes # (A) 0.45 10*3/uL (0.20-1.00); Monocytes % (A) 6.8 %; Neutrophils # (A) 4.35 10*3/uL (1.80-7.70); Neutrophils % (A) 65.2 %; Platelet Count 297 10*3/uL (140-440); RBC 4.69 10*6/uL (4.40-5.60); RDW 12.4 % (11.5-14.5); WBC 6.66 10*3/uL (4.50-10.00)
--- NOTE | 2024-07-07 16:00 | CT ---
EXAMINATION TYPE: CODE STROKE: CT brain wo contr CT DLP: 1204.6 mGycm, Automated exposure control for dose reduction was used. DATE OF EXAM: 07/07/2024 3:47 PM COMPARISON: MRI brain 11/11/2010 CLINICAL INDICATION:Male, 48 years old with history of Neuro deficit, acute, stroke suspected, TECHNIQUE: Brain: Multiple axial CT images of the brain were obtained without IV contrast. . Coronal and sagitta l reformats reviewed. FINDINGS: Brain: Extra-axial spaces: No abnormal extra-axial fluid collections. Ventricular system: Within normal limits Cerebral parenchyma: No acute intraparenchymal hemorrhage or mass effect. The reich-white junction is well differentiated. Cerebellum: Encephalomalacia within the right cerebellum from prior injury. Mass effect: No evidence of midline shift. Intracranial vasculature: unremarkable Soft tissues: Normal. Calvarium/osseous structures: No depressed skull fracture. Paranasal sinuses and mastoid air cells: The mastoid air cells are clear. Minimal mucosal thickening of the bilateral maxillary sinuses. Remaining paranasal sinuses are clear. Visualized orbits: Orbital contents are intact. IMPRESSION: 1. No acute intracranial process. 2. Encephalomalacia within the right cerebellum from prior injury. Findings communicated to Dr. Lalo Burdick MD on 07/07/2024 3:[address] Alvarado Betancourt . [facility], , 07/07/2024 3:57 PM
[2024-07-07 16:01] LABS: ALT 24 U/L (4-49); AST 21 U/L (17-59); African American GFR (CKD) >90 (>60 ml/min/1.73 sqM); Albumin 4.6 g/dL (3.5-5.0); Alkaline Phosphatase 51 U/L (38-126); Anion Gap 9 mmol/L; Blood Urea Nitrogen 11 mg/dL (9-20); Calcium 9.9 mg/dL (8.4-10.2); Carbon Dioxide 26 mmol/L (22-30); Chloride 107 mmol/L (98-107); Creatine Kinase 124 U/L (55-170); Glucose 84 mg/dL (74-99); Non-African American GFR(CKD) 88 (>60 ml/min/1.73 sqM); Potassium 3.4 mmol/L (3.5-5.1); Sodium 142 mmol/L (137-145); Total Bilirubin 0.8 mg/dL (0.2-1.3); Total Protein 7.6 g/dL (6.3-8.2)
--- NOTE | 2024-07-07 16:13 | CT ---
EXAMINATION TYPE: CT angio head neck CT DLP: 638.8 mGycm, Automated exposure control for dose reduction was used. DATE OF EXAM: 07/07/2024 4:04 PM COMPARISON: CT brain of the same date. CLINICAL INDICATION:Male, 48 years old with history of Neuro deficit, acute, stroke suspected; PHH, w eakness and rt sided numbness. CODE THROMBOLYTIC. TECHNIQUE: Axially acquired helical CT angiogram of the head and neck was obtained with contrast util izing 75 cc of [id number]-370 administered intravenously. Axial images are supplemented with 3D reconstru ctions which were post-processed at an independent workstation. NASCET criteria used. MIP imaging performed on a separate workstation and submitted for review. FINDINGS: CTA HEAD: No evidence of acute intracranial hemorrhage, mass effect, or midline shift. The ventricles, sulci, a nd cisterns are unremarkable. The visualized portions of the internal carotid arteries, middle cerebral arteries, anterior cerebral arteries, and posterior cerebral arteries are patent. The basilar and vertebral arteries are patent. CTA NECK: Right Carotid System: The common carotid artery and external carotid artery are patent. Mild calcified plaque at the caroti d bifurcation. The carotid bifurcation demonstrates no evidence of hemodynamically significant stenos is. The remaining portions of the internal carotid artery demonstrate normal size without significant narrowing. Left Carotid System: The common carotid artery and external carotid artery are patent. Mild calcified plaque at the caroti d bifurcation. The carotid bifurcation demonstrates no evidence of hemodynamically significant stenos is. The remaining portions of the internal carotid artery demonstrate normal size without significant narrowing. The left vertebral artery is dominant and patent without evidence of hemodynamic significant stenosis . There is poor visualization of the right vertebral artery especially at its origin. The remaining v isualized contrast-enhanced portions are diminutive. There is a three-vessel aortic arch. The origins of the great vessels are patent. No evidence of hemo dynamically significant stenosis. Multilevel degenerative changes of the cervical spine with reversal of the normal cervical lordosis. Macrocalcification within the right thyroid lobe. Calcified granuloma within the left upper lobe. IMPRESSION: 1. No evidence of dissection of the cervical internal carotid arteries any evidence of significant st enosis at the carotid bifurcations. 2. No evidence of high-grade stenosis or intracranial aneurysm. 3. Dominant patent left vertebral artery with hypoplastic right vertebral artery with poor visualizat ion of the proximal portion. [facility], , 07/07/2024 4:11 PM
[2024-07-07 16:16] LABS: INR 2.5 (<1.2); Partial Thromboplastin Time 28.6 sec (22.0-30.0); Prothrombin Time 25.2 sec (10.0-12.5)
--- NOTE | 2024-07-07 16:23 | XR ---
EXAMINATION TYPE: XR chest 2V DATE OF EXAM: 07/07/2024 CLINICAL INDICATION: Male, 48 years old with history of altered mental status, TECHNIQUE: Frontal and lateral views of the chest are obtained. COMPARISON: Chest x-ray April 14, 2019 FINDINGS: Some chronic parenchymal changes bilaterally are redemonstrated. There is no suspicious ne w focal air space opacity, pleural effusion, or pneumothorax seen. Stable mild cardiomegaly. The os seous structures are intact. IMPRESSION: Chronic changes and mild cardiomegaly without acute pulmonary process. [facility], , 07/07/2024 4:20 PM
[2024-07-07] MEDS: SODIUM CHLORIDE 0.9% 1,000 ML IV ONE (16:44)
[2024-07-07] MEDS: ASPIRIN 81 MG PO STA ×2 (16:47→18:20)
[2024-07-07] MEDS: diphenhydrAMINE 50 MG/ML 1 ML VIAL IVP STA (16:48)
[2024-07-07] MEDS: METOCLOPRAMIDE 5 MG/ML 2 ML VIAL IVP STA (16:51)
[2024-07-07] MEDS: methylPREDNISolone SOD SUCCI 125 MG/2 ML VIAL IV STA (16:57)
[2024-07-07] MEDS: ACETAMINOPHEN TAB 500 MG TAB PO PRN (23:43)
--- NOTE | 2024-07-08 10:05 | P.HPIM ---
History of Present Illness H&P Date: 07/08/24 Patient is a this a 48-year-old male with a history of migraine, stroke and DVT, PE on warfarin therapeutic INR presents to the emergency after experiencing sudden onset occipital pain while he was at work yesterday afternoon. Pain was described as sharp sudden onset 9 out of 10 nonradiating associated with dizziness, blurry vision, numbness and tingling in upper and lower extremities, generalized weakness. Patient experienced similar episodes 2 years ago when he was diagnosed with stroke. He came to ER for further evaluation. Code stroke was initiated but patient did not receive tPA with low NIH score.. At the time of the interview, patient reports complete resolution of his symptoms. Patient reports no headaches, occipital pain, dizziness, numbness or weakness in upper or lower extremities. He reports no nausea or vomiting has no difficulty with speech or swallowing. CT brain shows no acute intracranial process and encephalomalacia within the right cerebellum from prior injury. CT angio head and neck shows mildly calcified plaque at the carotid bifurcation otherwise no evidence of stenosis in the right carotid and left carotid system as well as vertebral arteries. Chest x-ray shows no acute cardiopulmonary process. EKG shows normal sinus rhythm ventricular rate of 99 bpm, CO intervals 164 ms, QRS duration 104 ms, QTc [address]-T wave changes noted. Normal R wave progression noted. Initial lab work shows WBC 6.6, hemoglobin 14.8, platelet count 297, PT 25.2, INR 2.5, APTT 28.6 sodium 142, potassium 3.4, BUN 11, creatinine 0.9, Review of systems: Pertinent positives and negatives as discussed in HPI, a complete review of systems was performed and all other systems are negative. Patient denies any chest pain, shortness of breath, abdominal pain, nausea, vomiting, numbness or weakness in upper or lower extremities Physical examination: Vital signs reviewed General: non toxic, no distress, appears at stated age, overweight Derm: no unusual rashes/lesions, warm Head: atraumatic, normocephalic, symmetric Eyes: EOMI, no lid lag, anicteric sclera, pupils equal round reactive to light ENT: Nose and ears atraumatic Neck: No cervical lymphadenopathy, trachea midline, supple Mouth: no lip lesion, mucus membranes moist Cardiovascular: S1S2 reg, no murmur, positive dorsalis pedis pulse bilateral, no edema Lungs: CTA bilateral, no rhonchi, no rales, no accessory muscle use Abdominal: soft, nontender to palpation, no guarding Ext: muscle strength 5 out of 5 in all 4 extremities grossly, no gross muscle atrophy, no contractures, Neuro: CN II-XI grossly intact, no gross focal neuro deficits Psych: Alert, oriented, appropriate affect Assessment/Plan: This is a 48-year-old male with a history of stroke and DVT, PE on warfarin therapeutic INR presents to the emergency after experiencing sudden onset occipital pain while he was at work yesterday afternoon. . Case was discussed with the Emergency Room provider and decision was made to admit the patient for CVA Labs and images: CT brain shows no acute intracranial process and encephalomalacia within the right cerebellum from prior injury. CT angio head and neck shows mildly calcified plaque at the carotid bifurcation otherwise no evidence of stenosis in the right carotid and left carotid system as well as vertebral arteries. Chest x-ray shows no acute cardiopulmonary process. EKG shows normal sinus rhythm ventricular rate of 99 bpm, CO intervals 164 ms, QRS duration 104 ms, QTc [address]-T wave changes noted. Normal R wave progression noted. Initial lab work shows WBC 6.6, hemoglobin 14.8, platelet count 297, PT 25.2, INR 2.5, APTT 28.6 sodium 142, potassium 3.4, BUN 11, creatinine 0.9 Active: #Suspected transient ischemic attack, rule out CVA #History of DVT and PE NIH score 0 Patient reports complete resolution of symptoms Did not receive tPA in the ED Continue with aspirin 81 mg once daily Start patient on moderate intensity statin CT brain and CT angio head and neck unremarkable Order MRI of the brain without contrast Order echocardiogram with bubble study Neurochecks Lipid panel Consult neurology Resume warfarin #History of hypertension Resume lisinopril #History of migraine Resume amitriptyline DVT prophylaxis: Warfarin GI prophylaxis: None F: None E: Replete as needed N: Clear liquid diet A: Ambulatory at baseline The patient is admitted with an anticipated less than than 2 midnight stay for evaluation of TIA, rule out CVA CODE STATUS: Full code Discussed with: Patient Anticipated discharge place: Pending clinical course Dictation was produced using [employer] software. Please excuse any grammatical, word or spelling errors. Past Medical History Past Medical History: CVA/TIA, Deep Vein Thrombosis (DVT), GI Bleed, Hypertension, Pulmonary Embolus (PE), Sleep Apnea/CPAP/BIPAP Additional Past Medical History / Comment(s): DVT RIGHT LEG , PE, polycythemia vera , STROKE MAY 31 2020 History of Any Multi-Drug Resistant Organisms: None Reported Past Surgical History: Cholecystectomy, Hernia Repair, Tonsillectomy Additional Past Surgical History / Comment(s): LEFT INGUINAL HERNIA, Past Anesthesia/Blood Transfusion Reactions: Motion Sickness Past Psychological History: No Psychological Hx Reported Smoking Status: Former smoker Past Alcohol Use History: None Reported Past Drug Use History: None Reported - Past Family History Mother Family Medical History: Deep Vein Thrombosis (DVT) Additional Family Medical History / Comment(s): DVT-LEG Medications and Allergies Home Medications Medication Instructions Recorded Confirmed Type Warfarin [Coumadin] 5 mg PO SUMOTUTHFRSA 10/05/20 07/07/24 History Amitriptyline HCl [Elavil] 50 mg PO DAILY 07/07/24 07/07/24 History Warfarin [Coumadin] 2.5 mg PO WE 07/07/24 07/07/24 History lisinopriL 40 mg PO DAILY 07/07/24 07/07/24 History Aspirin 81 mg PO DAILY #30 tab 07/08/24 Rx Atorvastatin [Lipitor] 40 mg PO DAILY #30 tab 07/08/24 Rx Dapagliflozin Propanediol [Farxiga] 5 mg PO DAILY #14 tablet 07/08/24 Rx Metoprolol Succinate [Metoprolol 25 mg PO DAILY #14 tab 07/08/24 Rx Succinate ER] Spironolactone [Aldactone] 25 mg PO DAILY #14 tablet 07/08/24 Rx Allergies Allergy/AdvReac Type Severity Reaction Status Date / Time Penicillins Allergy FAMILY Verified 07/07/24 17:03 HISTORY Physical Exam Vitals: Vital Signs Temp Pulse Resp BP Pulse Ox 07/08/24 06:14 80 18 121/81 96 07/08/24 00:57 81 18 136/88 93 L 07/07/24 21:45 91 18 136/88 96 07/07/24 18:19 89 20 119/82 97 07/07/24 17:00 84 18 140/95 95 07/07/24 16:45 88 18 138/88 95 07/07/24 15:45 90 20 125/90 98 07/07/24 14:57 97.9 F 112 H 18 162/98 97 Results CBC & Chem 7: 07/07/24 15:22 07/07/24 15:22 Labs: Abnormal Lab Results - Last 24 Hours (Table) 07/07/24 07/07/24 07/07/24 Range/Units 15:22 15:22 15:22 MPV 8.8 L (9.5-12.2) fL PT 25.2 H (10.0-12.5) sec INR 2.5 H (<1.2) Potassium 3.4 L (3.5-5.1) mmol/L
[2024-07-08 10:54] LABS: LDL Cholesterol,Calculated 166.3 mg/dL (0.0-131.0); VLDL Calculation 15.76 mg/dL (5.00-40.00)
[2024-07-08 11:06] LABS: INR 2.8 (<1.2); Prothrombin Time 28.1 sec (10.0-12.5)
[2024-07-08] MEDS: ATORVASTATIN 40 MG TAB PO SCH (11:42)
[2024-07-08] MEDS: AMITRIPTYLINE HCL 50 MG TAB PO SCH (11:42)
[2024-07-08] MEDS: lisinopriL 20 MG TAB PO SCH (11:42)
--- NOTE | 2024-07-08 11:47 | MR ---
EXAMINATION TYPE: MR brain wo con DATE OF EXAM: 07/08/2024 COMPARISON: Prior MRI brain 2010. CT brain 1 day earlier. HISTORY: Neuro deficit acute onset. TECHNIQUE: Multiplanar, multisequence imaging of the brain and brainstem is performed without IV cont rast. FINDINGS: Diffusion weighted images demonstrate no evidence of a recent infarct or other diffusion abnormality. There is no extraaxial fluid collection or significant white matter signal abnormality. The ventricu lar system and cisternal spaces are normal in size and appearance. The brain volume is age appropria te. There is interval infarct inferior right cerebellar hemisphere medial aspect. Midline structures demonstrate normal morphology. The craniocervical junction appears within normal limits. Normal vascular flow voids are present. The globes are intact. Tiny mucous retention cysts or polyps in bilateral maxillary sinuses is redemonstrated. Mild mucosal thickening bilateral ethmoid s inuses again seen. IMPRESSION: No MRI evidence for a recent infarct. Old infarct medial inferior aspect right cerebellar hemisphere is redemonstrated. [facility], , 07/08/2024 11:44 AM
[2024-07-08 13:46] VITALS: BP 143/88; PULSE 89; RESP 16; TEMP 98.1
--- NOTE | 2024-07-08 14:28 | CA ---
Transthoracic Echo Report Name: Chon Marin Age: 48 Gender: M : 1975 Exam Date: 07/08/2024 12:32 Exam Location: [facility] Ht (in): 68 Wt (lb): 195 Ordering Physician: Isaac Neff MD Attending/Referring Phys: Environmental Services Specialist Anita Keller RDCS Procedure CPT: Indications: TIA; bubble studdy Cardiac Hx: Technical Quality: Good Contrast 1: Total Dose (mL): Contrast 2: Total Dose (mL): MEASUREMENTS (Male / Female) Normal Values 2D ECHO LV Diastolic Diameter PLAX 4.6 cm 4.2 - 5.9 / 3.9 - 5.3 cm LV Systolic Diameter PLAX 3.1 cm IVS Diastolic Thickness 0.9 cm 0.6 - 1.0 / 0.6 - 0.9 cm LVPW Diastolic Thickness 1.2 cm 0.6 - 1.0 / 0.6 - 0.9 cm LV Relative Wall Thickness 0.4 LVOT Diameter 1.9 cm LV Diastolic Volume MOD BP 132.3 cm??? 67 - 155 / 56 - 104 cm??? LV Systolic Volume MOD BP 64.4 cm??? 22 - 58 / 19 - 49 cm??? LV Ejection Fraction MOD BP 51.3 % >= 55 % LV Cardiac Index MOD BP 2702.3 cm???/min???m??? LV Diastolic Volume MOD 4C 150.7 cm??? LV Systolic Volume MOD 4C 79.5 cm??? LV Ejection Fraction MOD 4C 47.2 % LV Cardiac Index MOD 4C 2835.0 cm???/min???m??? LV Diastolic Length 4C 9.3 cm LV Systolic Length 4C 7.6 cm LV Diastolic Volume MOD 2C 114.2 cm??? LV Systolic Volume MOD 2C 49.1 cm??? LV Ejection Fraction MOD 2C 57.0 % LV Cardiac Index MOD 2C 2595.4 cm???/min???m??? LV Diastolic Length 2C 9.6 cm LV Systolic Length 2C 7.1 cm LA Volume 35.6 cm??? 18 - 58 / 22 - 52 cm??? LA Volume Index 17.1 cm???/m??? 16 - 28 cm???/m??? DOPPLER AV Peak Velocity 90.0 cm/s AV Peak Gradient 3.2 mmHg AV Mean Velocity 69.1 cm/s AV Mean Gradient 3.0 mmHg AV Velocity Time Integral 16.8 cm LVOT Peak Velocity 113.8 cm/s LVOT Peak Gradient 5.2 mmHg LVOT Velocity Time Integral 20.3 cm LVOT Stroke Volume 54.7 cm??? LVOT Stroke Volume Index 27.0 ml/m??? LVOT Cardiac Index 2177.3 cm???/min???m??? AV Area Cont Eq vti 3.3 cm??? AV Area Cont Eq pk 3.4 cm??? MV Area PHT 8.0 cm??? Mitral E Point Velocity 56.7 cm/s Mitral A Point Velocity 84.6 cm/s Mitral E to A Ratio 0.7 MV Deceleration Time 95.3 ms PV Peak Velocity 110.3 cm/s PV Peak Gradient 4.9 mmHg FINDINGS Left Ventricle Left ventricular ejection fraction is estimated at 40-45 %. Mildly increased left ventricular systolic volume. Mildly decreased left ventricular ejection fraction. No obvious regional wall motion abnormalities. Left ventricular wall thickness normal. Global left ventricular hypokinesis. Right Ventricle Normal right ventricular size and function. Unable to estimate the right ventricular systolic pressure. Right Atrium Left Atrium Normal left atrial size. Mitral Valve Structurally normal mitral valve. Mild mitral annular calcification. No evidence for mitral valve prolapse. No mitral stenosis. Trace mitral regurgitation. Aortic Valve Trileaflet aortic valve. No aortic valve stenosis or regurgitation. Tricuspid Valve Structurally normal tricuspid valve. No tricuspid stenosis. Trace tricuspid regurgitation. Pulmonic Valve Structurally normal pulmonic valve. No pulmonic stenosis. Trace pulmonic regurgitation. Pericardium No pericardial effusion. Aorta Normal size aortic root and proximal ascending aorta. CONCLUSIONS Reason for test: TIA/CVA, hypertension Reduced LV systolic function ejection fraction 40% No [id number] communication at the inter-atrial level Previewed by: Dr. Kenneth Camacho MD (Electronically Signed) Final Date: 08 Jul 2024 14:27
--- NOTE | 2024-07-08 14:39 | P.CNNES ---
History of Present Illness Consult date: 07/08/24 Requesting physician: Lalo Burdick Reason for Consult: cva, no tenectaplase History of Present Illness: This is a 48-year-old gentleman with history of stroke, pulmonary embolism and blood clots in the heart who is on Coumadin, migraine who presents emergency department because of blurry vision, dizziness, generalized weakness, headache. Patient stated that his symptoms began yesterday around 1 PM and he noticed that he was having sharp pain in the back of the head and felt very sharp, dizzy, generalized weakness but felt his right side was weaker than the left as well as normal on the right side. He felt the head. For his history of pulmonary embolism blood clot he is on Coumadin and is compliant taking the medication. He was on atorvastatin in the past but was discontinued the past since he was having confusion and his primary care physician felt it could have been the medication but while was discontinued continued he continued to have short-term memory loss. He states that his symptoms that he presents with have resolved by yesterday evening. His mother also has history of blood clots. He recalls having blood workup for his blood clots he thinks everything came back normal. In the ED the patient NIH was 1 for numbness. Code stroke was activated. The ED physician spoke with Dr. Juarez, stroke/interventional neurologist. And it seems that the stroke attending was recommended for no TNK since he is a poor candidate and it seems the risk outweigh the benefit. 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 Some of the workup during this hospital visit consisted of: Initial INR was 2.5 and currently the INR is 2.8. Panel is triglyceride 78, cholesterol is 245, LDL is 166 and HDL 62 I reviewed the rest of the lab workup CT of the head is reported as no acute intracranial process. Encephalomalacia within the right cerebellum from prior injury. I personally reviewed CT and agree with the report. CT angiography of the head and neck is reported as no evidence of dissection of cervical internal carotid artery or any evidence of significant stenosis at the carotid bifurcation. No evidence of high-grade stenosis or intracranial aneu rysm. Dominant patent left vertebral artery with hypoplastic right vertebral artery with poor visualization of the proximal portion. MRI of the brain is reported as no MRI evidence of recent infarct. Old infarct medial inferior aspect right cerebellar hemisphere is redemonstrated Review of Systems As per HPI. Past Medical History Past Medical History: CVA/TIA, Deep Vein Thrombosis (DVT), GI Bleed, Hypertension, Pulmonary Embolus (PE), Sleep Apnea/CPAP/BIPAP Additional Past Medical History / Comment(s): DVT RIGHT LEG , PE, polycythemia vera , STROKE MAY 31 2020 History of Any Multi-Drug Resistant Organisms: None Reported Past Surgical History: Cholecystectomy, Hernia Repair, Tonsillectomy Additional Past Surgical History / Comment(s): LEFT INGUINAL HERNIA, Past Anesthesia/Blood Transfusion Reactions: Motion Sickness Past Psychological History: No Psychological Hx Reported Smoking Status: Former smoker Past Alcohol Use History: None Reported Past Drug Use History: None Reported - Past Family History Mother Family Medical History: Deep Vein Thrombosis (DVT) Additional Family Medical History / Comment(s): DVT-LEG Medications and Allergies Home Medications Medication Instructions Recorded Confirmed Type Warfarin [Coumadin] 5 mg PO SUMOTUTHFRSA 10/05/20 07/07/24 History Amitriptyline HCl [Elavil] 50 mg PO DAILY 07/07/24 07/07/24 History Warfarin [Coumadin] 2.5 mg PO WE 07/07/24 07/07/24 History lisinopriL 40 mg PO DAILY 07/07/24 07/07/24 History Allergies Allergy/AdvReac Type Severity Reaction Status Date / Time Penicillins Allergy FAMILY Verified 07/07/24 17:03 HISTORY Physical Examination - Vital Signs Vital Signs: Vital Signs Temp Pulse Pulse Resp BP BP Pulse Ox 07/08/24 13:43 98.1 F 89 16 143/88 98 07/08/24 13:19 97.8 F 100 18 133/98 100 07/08/24 11:43 97 18 123/90 98 07/08/24 09:15 97.8 F 87 18 128/86 97 07/08/24 06:14 80 18 121/81 96 07/08/24 00:57 81 18 136/88 93 L 07/07/24 21:45 91 18 136/88 96 07/07/24 18:19 89 20 119/82 97 07/07/24 17:00 84 18 140/95 95 07/07/24 16:45 88 18 138/88 95 07/07/24 15:45 90 20 125/90 98 07/07/24 14:57 97.9 F 112 H 18 162/98 97 GENERAL: The patient is lying in bed and is not in acute distress. NEUROLOGICAL: Higher mental function: The patient is awake, alert, oriented to self, place and time. Patient is following commands. No aphasia and no neglect. Cranial nerves: The pupils are round, equal and reactive to light and accommodation. Visual jean baptiste are full to confrontation throughout. Extraocular movement is intact no nystagmus is noted. Facial sensation is slightly decrease to touch over the right side. The facial strength is normal throughout. Hearing is normal bilaterally to hand rub. Tongue is midline and moved [id number] without any difficulty. No dysarthria is noted. Shoulder shrug is normal bilaterally. Motor: The strength is 5 over 5 throughout. Normal tone and bulk. Cerebellum: Normal finger to nose heel to armijo bilaterally. Sensation: Sensation is decrease to touch over the right lower extremity below the knee and he stated is chronic. Otherwise normal to touch throughout. Reflexes (right/left):2+ throughout. Plantars are downgoing bilaterally. Results - Laboratory Findings CBC and BMP: 07/07/24 15:22 07/07/24 15:22 Abnormal Lab Findings: Abnormal Labs 07/07/24 07/07/24 07/07/24 15:22 15:22 15:22 MPV 8.8 L PT 25.2 H INR 2.5 H Potassium 3.4 L Cholesterol LDL Cholesterol, Calc HDL Cholesterol 07/08/24 07/08/24 07:27 10:17 MPV PT 28.1 H INR 2.8 H Potassium Cholesterol 245.00 H LDL Cholesterol, Calc 166.3 H HDL Cholesterol 62.90 H Assessment and Plan Assessment: This is a 48-year-old gentleman who presents emergency department because of blurry vision, generalized weakness but more weakness over the right side as well as numbness over the right side than the left, dizziness, severe pain in the back of the head that started about 1 PM. His symptoms has resolved except maybe minimal numbness over the right face. MRI of the brain is unremarkable for any acute or subacute stroke. Likely transient ischemic attack but cannot exclude complicated migraine History of stroke over the right inferior medial cerebellar History of Migraine History of pulmonary embolism and DVT (per medical records DVT but according to patient had blood clot but does not recall DVT) and is on Coumadin and INR therapeutic on presentation History of polycythemia vera Hypertension Family history of blood clots (mother) Plan: I agree with the addition of aspirin 81 mg in addition to the his home Coumadin. He was given aspirin 243mg once in ED. MRI of the brain is unremarkable for any acute or subacute stroke Pending 2D echo result. Continue neurochecks Cardiac monitoring PT OT and [employer] are consulted Patient has an appointment as an outpatient for evaluation of memory in which his short-term memory is affected over the last about 1 and half years. Will defer the rest of the medical management to primary other specialist For DVT prophylaxis the patient is on Coumadin The plan is discussed with the patient and his nurse. If 2D echo is negative then the patient is cleared from a neurology perspective. Patient needs to follow-up with a neurologist as an outpatient within 2 to 3 weeks.
--- NOTE | 2024-07-08 15:28 | P.DS ---
Providers Date of admission: 07/07/24 17:13 Attending physician: Maikol Avendaño Consults: 07/07/24 17:12 Consult Physician Routine Consulting Provider: Kaushik Vargas Consult Reason/Comments: cva. no tenectaplase Do you want consulting provider notified?: Yes Primary care physician: Mary Burdick Hospital Course: Discharge Diagnosis: #Suspected transient ischemic attack, brain CT and brain MRI negative for new infarct, CVA ruled out #History of DVT and PE, on warfarin, therapeutic INR range #HFrEF, echocardiogram shows LVEF 40% #History of hypertension #History of migraine Hospital Course: Patient is a this a 48-year-old male with a history of migraine, stroke and DVT, PE on warfarin therapeutic INR presents to the emergency after experiencing sudden onset occipital pain while he was at work yesterday afternoon. Pain was described as sharp sudden and onset 9 out of 10 nonradiating associated with dizziness, blurry vision, numbness and tingling in upper and lower extremities, generalized weakness. Patient experienced similar episodes 2 years ago when he was diagnosed with stroke. Patient came to ER for further evaluation. Code stroke was initiated but patient did not receive tPA with low NIH score. At the time of the interview, patient reports complete resolution of his symptoms. Patient reports no headaches, occipital pain, dizziness, numbness or weakness in upper or lower extremities. He reports no nausea or vomiting has no difficulty with speech or swallowing. CT brain shows no acute intracranial process and encephalomalacia within the right cerebellum from prior injury. CT angio head and neck shows mildly calcified plaque at the carotid bifurcation otherwise no evidence of stenosis in the right carotid and left carotid system as well as vertebral arteries. Chest x-ray shows no acute cardiopulmonary process. EKG shows normal sinus rhythm ventricular rate of 99 bpm, MO intervals 164 ms, QRS duration 104 ms, QTc [address]-T wave changes noted. Normal R wave progression noted. Initial lab work shows WBC 6.6, hemoglobin 14.8, platelet count 297, PT 25.2, INR 2.5, APTT 28.6 sodium 142, potassium 3.4, BUN 11, creatinine 0.9, Neurology was consulted. Echocardiogram with bubble study showed reduced left ventricle ejection fraction of 40% with no [id number] intracardiac shunting. Brain MRI shows no recent infarct. There is evidence of old infarct in the medial inferior aspect of the right cerebral hemisphere. Patient reports complete resolution of his presenting symptoms. He is otherwise hemodynamically stable and optimized for discharge. Neurology cleared the patient for discharge. Patient to be started on guideline directed medical therapy for HFrEF including beta-roger, SGLT inhibitor, mineralocorticoid receptor antagonist, HERB/ARB. Low-dose aspirin and moderate density statin is also initiated. Patient is advised to follow-up with PCP, outpatient neurology and cardiology. Rest of the medication is unchanged. Patient is medically anticoagulated on Coumadin. Discharge disposition: Home with self-care Vital signs reviewed. Gen: in no apparent distress, resting comfortably in bed Eyes: PERRLA, EOMI, no scleral injection or icterus HENT: normocephalic, atraumatic, good hearing acuity, moist mucous membranes Neck: full range of motion Resp: CTAB, no rales, rhonchi, or wheezes CVS: normal S1 and S2, no murmurs, rubs or gallops, no edema GI: soft, NTTP, ND, no hepatosplenomegaly : no suprapubic tenderness, no CVAT, julian catheter [is/not] present MSK: no clubbing, no cyanosis, no noted contractures of extremities Skin: no noted rashes, petechiae; temperature of skin is appropriate Neuro: moving all extremities without signs of weakness, CN II-XII intact Psych: cooperative, euthymic mood, insight and judgment intact Dictation was produced using [employer] dictation software. Please excuse any grammatical, word or spelling errors. Attestation I have seen and examined this patient with my resident , discussed the same with the resident/BRICE, and agree with the dictator's assessment and plan as written Dr. Sam kahn Patient Condition at Discharge: Stable Plan - Discharge Summary New Discharge Prescriptions: New Aspirin 81 mg PO DAILY #30 tab Atorvastatin [Lipitor] 40 mg PO DAILY #30 tab Spironolactone [Aldactone] 25 mg PO DAILY #14 tablet Dapagliflozin Propanediol [Farxiga] 5 mg PO DAILY #14 tablet Metoprolol Succinate [Metoprolol Succinate ER] 25 mg PO DAILY #14 tab Continue Warfarin [Coumadin] 5 mg PO SUMOTUTHFRSA Warfarin [Coumadin] 2.5 mg PO WE lisinopriL 40 mg PO DAILY Amitriptyline HCl [Elavil] 50 mg PO DAILY Discharge Medication List Warfarin [Coumadin] 5 mg PO SUMOTUTHFRSA 10/05/20 [History] Amitriptyline HCl [Elavil] 50 mg PO DAILY 07/07/24 [History] Warfarin [Coumadin] 2.5 mg PO WE 07/07/24 [History] lisinopriL 40 mg PO DAILY 07/07/24 [History] Aspirin 81 mg PO DAILY #30 tab 07/08/24 [Rx] Atorvastatin [Lipitor] 40 mg PO DAILY #30 tab 07/08/24 [Rx] Dapagliflozin Propanediol [Farxiga] 5 mg PO DAILY #14 tablet 07/08/24 [Rx] Metoprolol Succinate [Metoprolol Succinate ER] 25 mg PO DAILY #14 tab 07/08/24 [Rx] Spironolactone [Aldactone] 25 mg PO DAILY #14 tablet 07/08/24 [Rx] Follow up Appointment(s)/Referral(s): Mary Burdick DO [Primary Care Provider] - 1-2 days Patient Instructions/Handouts: Transient Ischemic Attack (DC), Heart Failure (DC) Activity/Diet/Wound Care/Special Instructions: Please follow-up with your PCP and outpatient neurology within 1 week posthospital discharge. Your echocardiogram showed reduced left ventricular ejection fraction of 40%. Please follow-up with your PCP and outpatient cardiology for systolic heart failure. I will order Farxiga 5 mg 1 tablet once daily, metoprolol succinate 25 mg 1 tablet once daily, Aldactone 25 mg 1 tablet once daily, atorvastatin 40 mg 1 tablet once daily and aspirin 81 mg 1 tablet once daily. Continue with lisinopril 40 mg 1 tablet once daily Discharge Disposition: HOME SELF-CARE
[2024-07-08] MEDS ORDERED: WARFARIN 5 MG TAB PO SCH (18:00)
[2024-07-09] MEDS ORDERED: ASPIRIN 81 MG PO SCH (09:00)
[2024-07-09] MEDS ORDERED: WARFARIN 2.5 MG TAB PO SCH (18:00)
== END 2024-07-08 16:57 | disposition home or self-care (01) | DRG 69 ==
LOC: EC 14:46 → 3SCARD 17:13
PROVIDERS: ADMIT Hospitalist; ATTEND Hospitalist
DX: G45.9 Transient cerebral ischemic attack, unspecified (principal); I50.22 Chronic systolic (congestive) heart failure; G93.89 Other specified disorders of brain; I11.0 Hypertensive heart disease with heart failure; D45 Polycythemia vera; G43.909 Migraine, unspecified, not intractable, without status migrainosus; R29.701 NIHSS score 1; G47.30 Sleep apnea, unspecified; Z79.01 Long term (current) use of anticoagulants; Z79.82 Long term (current) use of aspirin; Z79.84 Long term (current) use of oral hypoglycemic drugs; Z79.899 Other long term (current) drug therapy; Z86.711 Personal history of pulmonary embolism; Z86.718 Personal history of other venous thrombosis and embolism; Z86.73 Personal history of transient ischemic attack (TIA), and cerebral infarction without residual deficits; Z87.891 Personal history of nicotine dependence; Z88.0 Allergy status to penicillin
CPT/HCPCS: 36415; 70450; 70496; 70498; 70551; 71046; 80053; 80061; 82550; 85025; 85610; 85730; 93005; 93306; 96361; 96374; 96375; 99291

== ENCOUNTER → 2024-08-15 | Outpatient (CLI) | payer BC ==
[2024-08-15 15:49] LABS: ALT 41 U/L (10-49); AST 25 U/L (14-35); Albumin 4.7 g/dL (3.8-4.9); Albumin/Globulin Ratio 1.81 Ratio (1.60-3.17); Alkaline Phosphatase 70 U/L (41-126); Blood Urea Nitrogen 18.7 mg/dL (9.0-27.0); Calcium 9.8 mg/dL (8.7-10.3); Carbon Dioxide 23.7 mmol/L (21.6-31.8); Chloride 101 mmol/L (96-109); Chol/HDL Ratio 2.74 Ratio; Globulin 2.6 g/dL (1.6-3.3); Glucose 93 mg/dL (70-110); LDL Cholesterol,Calculated 87.3 mg/dL (0.0-131.0); Potassium 5.2 mmol/L (3.5-5.5); Sodium 138 mmol/L (135-145); Total Protein 7.3 g/dL (6.2-8.2); VLDL Calculation 16.84 mg/dL (5.00-40.00)
[2024-08-15 15:51] LABS: INR 2.7 sec (0.93-1.11); Prothrombin Time 28.1 sec (9.9-11.9)
== END | disposition home or self-care (01) ==
LOC: LABWHC1 11:46
PROVIDERS: ATTEND Physician Assistant Medical
DX: E78.2 Mixed hyperlipidemia (principal); Z79.01 Long term (current) use of anticoagulants; Z86.79 Personal history of other diseases of the circulatory system
CPT/HCPCS: 36415; 80053; 80061; 85610